=== PATIENT | male | born 1945 | race African-American/Black ===

== ENCOUNTER 2020-08-14 17:10 | Inpatient (IN) | payer MEDICARE, BC ==
[2020-08-14 18:17] VITALS: BMI 25.8
[2020-08-14] MEDS ORDERED: Acetaminophen 325 MG TAB PO PRN (19:02)
[2020-08-14] MEDS ORDERED: Calcium Carbonate 500 MG ChewTAB PO PRN (19:02)
[2020-08-14] MEDS ORDERED: Ondansetron PF 4 MG/2 ML Vial IVP PRN (19:02)
[2020-08-14] MEDS ORDERED: Guaifenesin DM 100-10/5 ML UDCUP PO PRN (19:02)
[2020-08-14] MEDS ORDERED: Bisacodyl 10 MG SUPP PR PRN (19:02)
[2020-08-14] MEDS: Finasteride 5 MG TAB PO SCH (22:09)
[2020-08-15 05:36] LABS: ALT (SGPT) 16 U/L (8-55); AST (SGOT) 21 U/L (5-34); Albumin 2.9 g/dL (3.4-4.8); Alkaline Phosphatase 74 U/L (40-110); Anion Gap 13 mmol/L (10-20); BUN (Urea Nitrogen) 28 mg/dL (8.4-25.7); Bilirubin, Total 0.8 mg/dL (0.2-1.2); Calc. Creatinine Clearance 63 mL/min (70-130); Calcium 7.8 mg/dL (7.8-10.44); Carbon Dioxide 20 mmol/L (23-31); Chloride 108 mmol/L (98-107); Glucose 97 mg/dL (83-110); Potassium 4.6 mmol/L (3.5-5.1); Protein, Total 5.9 g/dL (5.8-8.1); Sodium 136 mmol/L (136-145)
[2020-08-15 05:53] LABS: #Lymphocytes 1.3 thou/uL (1.20-3.40); #Monocytes 1.1 thou/uL (0.11-0.59); #Neutrophils 8.3 thou/uL (1.40-6.50); %Basophils 0.1 % (0.0-1.0); %Eosinophils 0.2 % (0.0-10.0); %Lymphocytes 12.1 % (21.0-51.0); %Monocytes 10.4 % (0.0-10.0); %Neutrophils 77.2 % (42.0-75.0); Hemoglobin 10.7 g/dL (14.0-18.0); Mean Corpuscular HGB CONC 32.7 g/dL (32.0-36.0); Mean Corpuscular Hemoglobin 30.2 pg (27.0-31.0); Mean Corpuscular Volume 92.4 fL (78.0-98.0); Mean Platelet Volume 9.6 fL (7.4-10.4); Platelet Count 117 thou/uL (130-400); Platelet Morphology Comment Appears Decreased; Red Blood Cell (RBC) Count 3.55 mill/uL (4.70-6.10); White Blood Cell (WBC) Count 10.8 thou/uL (4.8-10.8)
[2020-08-15 06:08] LABS: CKMB 1.7 ng/mL (0-6.6)
[2020-08-15] MEDS ORDERED: Furosemide 20 MG/2 ML VIAL SLOW IVP SCH (08:00)
[2020-08-15] MEDS ORDERED: FLU VACC QS2020-21(65YR UP)/PF 240 MCG/0.7 ML SYRINGE IM ONE (09:00)
[2020-08-15] MEDS ORDERED: Simvastatin 10 MG TAB PO SCH (09:00)
[2020-08-15] MEDS ORDERED: Enoxaparin Sodium 40 MG/0.4 ML SYRINGE SC SCH (09:00)
[2020-08-15] MEDS ORDERED: Tamsulosin HCl 0.4 MG CAP ONE (09:33)
[2020-08-15] MEDS: Tamsulosin HCl 0.4 MG CAP PO SCH ×2 (09:44→09:58)
[2020-08-15] MEDS: Clopidogrel Bisulfate 75 MG TAB PO SCH (09:44)
[2020-08-15] MEDS: Aspirin Chewable 81 MG TAB PO SCH (09:45)
[2020-08-15] MEDS: Multivitamin W/ Minerals 1 TAB PO SCH (09:46)
[2020-08-15] MEDS: Enoxaparin Sodium 100 MG/ML SYRINGE SC SCH ×2 (09:49→21:27)
[2020-08-15] MEDS: Furosemide 20 MG/2 ML VIAL SLOW IVP SCH (13:27)
[2020-08-15] MEDS: Senokot S 8.6-50 MG TAB PO PRN (13:34)
[2020-08-15] MEDS: Simvastatin 10 MG TAB PO SCH (21:28)
[2020-08-15] MEDS: Finasteride 5 MG TAB PO SCH (21:28)
[2020-08-16 03:13] LABS: #Lymphocytes 0.7 thou/uL (1.20-3.40); #Monocytes 0.7 thou/uL (0.11-0.59); #Neutrophils 10.6 thou/uL (1.40-6.50); %Basophils 0.3 % (0.0-1.0); %Lymphocytes 5.8 % (21.0-51.0); %Monocytes 5.9 % (0.0-10.0); Hemoglobin 11.5 g/dL (14.0-18.0); Mean Corpuscular HGB CONC 34.1 g/dL (32.0-36.0); Mean Corpuscular Hemoglobin 31.1 pg (27.0-31.0); Mean Corpuscular Volume 91.4 fL (78.0-98.0); Mean Platelet Volume 9.4 fL (7.4-10.4); Platelet Count 113 thou/uL (130-400); RBC Distribution Width 13.1 % (11.5-14.5); Red Blood Cell (RBC) Count 3.69 mill/uL (4.70-6.10)
[2020-08-16 03:31] LABS: ALT (SGPT) 21 U/L (8-55); AST (SGOT) 26 U/L (5-34); Albumin 3.1 g/dL (3.4-4.8); Alkaline Phosphatase 68 U/L (40-110); Anion Gap 13 mmol/L (10-20); BUN (Urea Nitrogen) 32 mg/dL (8.4-25.7); Bilirubin, Total 1.1 mg/dL (0.2-1.2); Calc. Creatinine Clearance 51 mL/min (70-130); Calcium 8.1 mg/dL (7.8-10.44); Carbon Dioxide 24 mmol/L (23-31); Chloride 103 mmol/L (98-107); Globulin 3.3 g/dL (2.4-3.5); Glucose 115 mg/dL (83-110); Magnesium 1.8 mg/dL (1.6-2.6); Potassium 4.2 mmol/L (3.5-5.1); Protein, Total 6.4 g/dL (5.8-8.1); Sodium 136 mmol/L (136-145)
[2020-08-16 03:35] LABS: Troponin I 0.325 ng/mL (< 0.028)
[2020-08-16 03:37] LABS: INR-International Normal Ratio 1.7; PTT 57.1 sec (22.9-36.1); Prothrombin Time 20.3 sec (12.0-14.7)
[2020-08-16] MEDS: Furosemide 20 MG/2 ML VIAL SLOW IVP SCH ×2 (05:36→14:08)
[2020-08-16 08:19] LABS: Bilirubin Negative (Negative); Blood, Urine 2+ (Negative); Clarity Clear (Clear); Glucose, Urine (Dipstick) Normal (Negative); Ketone, Urine Negative (Negative); Leukocyte Negative Leu/uL (Negative); Nitrite Negative (Negative); Protein, Urine (Dipstick) 100 mg/dL (Neg-Trace); RBC/HPF Greater than 50 HPF (0-3); Specific Gravity, Urine 1.034 (1.002-1.036); Squamous Epithelial 0-3 HPF (0-3); WBC/HPF 0-3 HPF (0-3); pH, Urine 5.5 (5.0-9.0)
[2020-08-16 08:20] LABS: Bacteria/HPF 1+ HPF (None Seen)
[2020-08-16] MEDS: Multivitamin W/ Minerals 1 TAB PO SCH (09:16)
[2020-08-16] MEDS ORDERED: Iopamidol 370 76% 50 ML VIAL FS ONE (09:18)
[2020-08-16] MEDS ORDERED: Lidocaine 1% (PF) 30 ML VIAL ONE (09:59)
[2020-08-16] MEDS ORDERED: CEFAZOLIN 1 GM VIAL ONE (10:09)
[2020-08-16] MEDS ORDERED: Gentamicin 80 MG/2 ML VIAL ONE (10:09)
[2020-08-16] MEDS ORDERED: Acetaminophen/Codeine 30-300mg Tablet PO PRN ×2 (11:32)
[2020-08-16] MEDS ORDERED: hydrALAZINE 10 MG TAB PO SCH (13:15)
[2020-08-16] MEDS: Clopidogrel Bisulfate 75 MG TAB PO SCH (14:07)
[2020-08-16] MEDS: Aspirin Chewable 81 MG TAB PO SCH (14:07)
[2020-08-16] MEDS: Cephalexin 250 MG CAP PO SCH ×2 (14:08→21:00)
[2020-08-16] MEDS: Finasteride 5 MG TAB PO SCH (21:00)
[2020-08-16] MEDS: Simvastatin 10 MG TAB PO SCH (21:01)
[2020-08-16] MEDS: Senokot S 8.6-50 MG TAB PO PRN (21:01)
[2020-08-17 05:03] LABS: Anion Gap 13 mmol/L (10-20); BUN (Urea Nitrogen) 27 mg/dL (8.4-25.7); Calc. Creatinine Clearance 77 mL/min (70-130); Calcium 8.2 mg/dL (7.8-10.44); Carbon Dioxide 26 mmol/L (23-31); Chloride 103 mmol/L (98-107); Glucose 83 mg/dL (83-110); Potassium 4.1 mmol/L (3.5-5.1); Sodium 138 mmol/L (136-145)
[2020-08-17] MEDS: Furosemide 20 MG/2 ML VIAL SLOW IVP SCH (05:56)
[2020-08-17] MEDS: Tamsulosin HCl 0.4 MG CAP PO SCH (09:31)
[2020-08-17] MEDS: Aspirin Chewable 81 MG TAB PO SCH (09:31)
[2020-08-17] MEDS: Multivitamin W/ Minerals 1 TAB PO SCH (09:32)
[2020-08-17] MEDS: Cephalexin 250 MG CAP PO SCH (09:32)
[2020-08-17] MEDS: Clopidogrel Bisulfate 75 MG TAB PO SCH (09:32)
[2020-08-17 11:33] VITALS: TEMP 98.4
[2020-08-17 13:47] VITALS: BP 134/64
== END 2020-08-17 12:55 | disposition home or self-care (01) | DRG 243 ==
LOC: 2NO 17:34 → MERGE 17:34
PROVIDERS: ADMIT Internal Medicine; ATTEND Internal Medicine
PROC: 0JH606Z Insertion of Pacemaker, Dual Chamber into Chest Subcutaneous Tissue and Fascia, Open Approach (ICD-10-PCS; principal; 2020-08-16)
PROC: 02HK3JZ Insertion of Pacemaker Lead into Right Ventricle, Percutaneous Approach (ICD-10-PCS; 2020-08-16)
PROC: 02H63JZ Insertion of Pacemaker Lead into Right Atrium, Percutaneous Approach (ICD-10-PCS; 2020-08-16)
DX: I44.1 Atrioventricular block, second degree (principal); N17.9 Acute kidney failure, unspecified; R00.1 Bradycardia, unspecified; I12.9 Hypertensive chronic kidney disease with stage 1 through stage 4 chronic kidney disease, or unspecified chronic kidney disease; R55 Syncope and collapse; N18.2 Chronic kidney disease, stage 2 (mild); Z96.653 Presence of artificial knee joint, bilateral; E78.5 Hyperlipidemia, unspecified; I25.118 Atherosclerotic heart disease of native coronary artery with other forms of angina pectoris; N40.0 Benign prostatic hyperplasia without lower urinary tract symptoms; E86.0 Dehydration; I45.2 Bifascicular block; Z79.02 Long term (current) use of antithrombotics/antiplatelets
CPT/HCPCS: 33249; 36005; 36415; 36416; 70450; 70551; 71045; 75820; 80048; 80053; 81001; 82553; 83735; 83880; 84443; 84484; 85025; 85610; 85730; 90471; 90732; 93005; 93010; 93306; 93798; 97139; C1785; C1898; G0009; J0690; J1580; J1650; J1940; J2001; Q9967

== ENCOUNTER 2020-09-05 11:33 | Inpatient (IN) | payer MEDICARE, BC ==
[2020-09-05 18:15] LABS: Troponin I 0.138 ng/mL (< 0.028)
[2020-09-05 20:39] LABS: SARS-CoV-2 PCR by NAA Not Detected (NotDetected)
[2020-09-05] MEDS: Finasteride 5 MG TAB PO SCH (20:51)
[2020-09-05] MEDS: Simvastatin 10 MG TAB PO SCH (20:52)
[2020-09-05] MEDS: Acetaminophen 325 MG TAB PO PRN (20:52)
[2020-09-05 21:25] LABS: Troponin I 0.121 ng/mL (< 0.028)
[2020-09-06 06:17] LABS: #Eosinphils 0.3 thou/uL (0.0-0.7); #Lymphocytes 1.8 thou/uL (1.20-3.40); #Monocytes 0.9 thou/uL (0.11-0.59); #Neutrophils 7.3 thou/uL (1.40-6.50); %Basophils 0.3 % (0.0-1.0); %Eosinophils 2.9 % (0.0-10.0); %Lymphocytes 17.1 % (21.0-51.0); %Monocytes 8.8 % (0.0-10.0); %Neutrophils 70.9 % (42.0-75.0); Hemoglobin 12.3 g/dL (14.0-18.0); Mean Corpuscular Hemoglobin 30.5 pg (27.0-31.0); Mean Corpuscular Volume 92.4 fL (78.0-98.0); Mean Platelet Volume 8.2 fL (7.4-10.4); Platelet Count 180 thou/uL (130-400); RBC Distribution Width 12.9 % (11.5-14.5); Red Blood Cell (RBC) Count 4.05 mill/uL (4.70-6.10); White Blood Cell (WBC) Count 10.3 thou/uL (4.8-10.8)
[2020-09-06 06:40] LABS: Anion Gap 14 mmol/L (10-20); BUN (Urea Nitrogen) 18 mg/dL (8.4-25.7); Calc. Creatinine Clearance 78 mL/min (70-130); Carbon Dioxide 25 mmol/L (23-31); Chloride 103 mmol/L (98-107); Glucose 94 mg/dL (83-110); Potassium 4.8 mmol/L (3.5-5.1); Sodium 137 mmol/L (136-145)
[2020-09-06] MEDS ORDERED: Amlodipine 5 MG TAB PO SCH (09:00)
[2020-09-06] MEDS: Tamsulosin HCl 0.4 MG CAP PO SCH (09:31)
[2020-09-06] MEDS: Multivitamin W/ Minerals 1 TAB PO SCH (09:31)
[2020-09-06] MEDS: Clopidogrel Bisulfate 75 MG TAB PO SCH (09:32)
[2020-09-06] MEDS: Sodium Chloride 0.9% 1,000 ML IV SCH (10:51)
[2020-09-06] MEDS: Cefepime 1 GM in Sodium Chloride 0.9% 100 ML IVPB SCH (14:35)
[2020-09-06] MEDS: VANCOMYCIN 1.25 GM/250 ML BAG 1.25 GM in Premix Bag 1 BAG IVPB SCH (15:19)
[2020-09-06] MEDS ORDERED: Vancomycin 1 GM in Premix Bag 1 BAG IVPB SCH (21:00)
[2020-09-06] MEDS: Finasteride 5 MG TAB PO SCH (21:23)
[2020-09-06] MEDS: Simvastatin 10 MG TAB PO SCH (21:24)
[2020-09-07] MEDS: Sodium Chloride 0.9% 1,000 ML IV SCH ×4 (01:14→14:32)
[2020-09-07] MEDS: Cefepime 1 GM in Sodium Chloride 0.9% 100 ML IVPB SCH ×2 (01:29→14:33)
[2020-09-07] MEDS: VANCOMYCIN 1.25 GM/250 ML BAG 1.25 GM in Premix Bag 1 BAG IVPB SCH ×2 (02:23→15:28)
[2020-09-07 06:15] LABS: #Basophils 0.1 thou/uL (0.0-0.2); #Eosinphils 0.3 thou/uL (0.0-0.7); #Lymphocytes 1.5 thou/uL (1.20-3.40); #Monocytes 1.1 thou/uL (0.11-0.59); #Neutrophils 6.9 thou/uL (1.40-6.50); %Basophils 0.8 % (0.0-1.0); %Eosinophils 3.2 % (0.0-10.0); %Lymphocytes 14.9 % (21.0-51.0); %Monocytes 11.3 % (0.0-10.0); %Neutrophils 69.8 % (42.0-75.0); Hemoglobin 11.1 g/dL (14.0-18.0); Mean Corpuscular HGB CONC 31.4 g/dL (32.0-36.0); Mean Corpuscular Volume 92.4 fL (78.0-98.0); Mean Platelet Volume 8.4 fL (7.4-10.4); Platelet Count 164 thou/uL (130-400); RBC Distribution Width 12.9 % (11.5-14.5); Red Blood Cell (RBC) Count 3.83 mill/uL (4.70-6.10); White Blood Cell (WBC) Count 9.9 thou/uL (4.8-10.8)
[2020-09-07 06:34] LABS: Anion Gap 12 mmol/L (10-20); BUN (Urea Nitrogen) 15 mg/dL (8.4-25.7); Calc. Creatinine Clearance 89 mL/min (70-130); Calcium 8.4 mg/dL (7.8-10.44); Carbon Dioxide 25 mmol/L (23-31); Chloride 106 mmol/L (98-107); Glucose 83 mg/dL (83-110); Sodium 139 mmol/L (136-145)
[2020-09-07] MEDS: Multivitamin W/ Minerals 1 TAB PO SCH (09:16)
[2020-09-07] MEDS: Clopidogrel Bisulfate 75 MG TAB PO SCH (09:17)
[2020-09-07] MEDS: Tamsulosin HCl 0.4 MG CAP PO SCH (09:17)
[2020-09-07] MEDS: Finasteride 5 MG TAB PO SCH (22:00)
[2020-09-07] MEDS: Simvastatin 10 MG TAB PO SCH (22:05)
[2020-09-08] MEDS: Cefepime 1 GM in Sodium Chloride 0.9% 100 ML IVPB SCH ×2 (00:57→15:39)
[2020-09-08] MEDS: Sodium Chloride 0.9% 1,000 ML IV SCH ×3 (00:58→21:52)
[2020-09-08] MEDS: VANCOMYCIN 1.25 GM/250 ML BAG 1.25 GM in Premix Bag 1 BAG IVPB SCH ×2 (02:48→15:40)
[2020-09-08 05:51] LABS: Vancomycin, Trough 13.7 ug/mL
[2020-09-08] MEDS: Tamsulosin HCl 0.4 MG CAP PO SCH (07:51)
[2020-09-08] MEDS: Clopidogrel Bisulfate 75 MG TAB PO SCH (07:51)
[2020-09-08] MEDS: Multivitamin W/ Minerals 1 TAB PO SCH (07:51)
[2020-09-08] MEDS: Simvastatin 10 MG TAB PO SCH (21:18)
[2020-09-08] MEDS: Finasteride 5 MG TAB PO SCH (21:18)
[2020-09-09] MEDS: Cefepime 1 GM in Sodium Chloride 0.9% 100 ML IVPB SCH ×2 (01:29→15:36)
[2020-09-09] MEDS: Vancomycin HCl 1.25 GM in Sodium Chloride 0.9% 250 ML 250 ML IVPB SCH ×2 (02:20→15:36)
[2020-09-09] MEDS: Sodium Chloride 0.9% 1,000 ML IV SCH ×2 (05:23→17:35)
[2020-09-09 06:09] LABS: #Basophils 0.1 thou/uL (0.0-0.2); #Eosinphils 0.3 thou/uL (0.0-0.7); #Lymphocytes 1.9 thou/uL (1.20-3.40); #Neutrophils 6.4 thou/uL (1.40-6.50); %Basophils 0.7 % (0.0-1.0); %Lymphocytes 19.2 % (21.0-51.0); %Monocytes 10.3 % (0.0-10.0); %Neutrophils 66.8 % (42.0-75.0); Mean Corpuscular HGB CONC 33.2 g/dL (32.0-36.0); Mean Corpuscular Hemoglobin 30.2 pg (27.0-31.0); Mean Corpuscular Volume 90.8 fL (78.0-98.0); Mean Platelet Volume 8.1 fL (7.4-10.4); Platelet Count 155 thou/uL (130-400); RBC Distribution Width 12.6 % (11.5-14.5); Red Blood Cell (RBC) Count 3.65 mill/uL (4.70-6.10); White Blood Cell (WBC) Count 9.6 thou/uL (4.8-10.8)
[2020-09-09 06:33] LABS: Anion Gap 13 mmol/L (10-20); BUN (Urea Nitrogen) 10 mg/dL (8.4-25.7); Calc. Creatinine Clearance 96 mL/min (70-130); Calcium 8.4 mg/dL (7.8-10.44); Carbon Dioxide 24 mmol/L (23-31); Chloride 106 mmol/L (98-107); Glucose 81 mg/dL (83-110); Potassium 3.9 mmol/L (3.5-5.1); Sodium 139 mmol/L (136-145)
[2020-09-09] MEDS: Multivitamin W/ Minerals 1 TAB PO SCH (08:32)
[2020-09-09] MEDS: Clopidogrel Bisulfate 75 MG TAB PO SCH (08:32)
[2020-09-09] MEDS: Tamsulosin HCl 0.4 MG CAP PO SCH (08:32)
[2020-09-09] MEDS ORDERED: Amlodipine 10 MG TAB PO SCH (11:45)
[2020-09-09 13:59] LABS: Vancomycin, Trough 15.8 ug/mL
[2020-09-09] MEDS ORDERED: ALPRAZolam 0.25 MG TAB PO SCH (16:45)
[2020-09-09] MEDS: hydrALAZINE 20 MG/ML VIAL SLOW IVP PRN (17:21)
[2020-09-09] MEDS: Finasteride 5 MG TAB PO SCH (20:56)
[2020-09-09] MEDS: Simvastatin 10 MG TAB PO SCH (21:00)
[2020-09-10] MEDS: Cefepime 1 GM in Sodium Chloride 0.9% 100 ML IVPB SCH ×2 (02:11→16:39)
[2020-09-10] MEDS: Vancomycin HCl 1.25 GM in Sodium Chloride 0.9% 250 ML 250 ML IVPB SCH ×2 (04:01→16:39)
[2020-09-10] MEDS: Sodium Chloride 0.9% 1,000 ML IV SCH ×2 (04:02→15:56)
[2020-09-10 04:38] LABS: #Basophils 0.1 thou/uL (0.0-0.2); #Eosinphils 0.2 thou/uL (0.0-0.7); #Lymphocytes 1.7 thou/uL (1.20-3.40); #Neutrophils 6.3 thou/uL (1.40-6.50); %Basophils 0.7 % (0.0-1.0); %Eosinophils 2.4 % (0.0-10.0); %Monocytes 10.7 % (0.0-10.0); %Neutrophils 68.2 % (42.0-75.0); Mean Corpuscular HGB CONC 31.7 g/dL (32.0-36.0); Mean Corpuscular Hemoglobin 28.8 pg (27.0-31.0); Mean Corpuscular Volume 90.9 fL (78.0-98.0); Mean Platelet Volume 7.9 fL (7.4-10.4); Platelet Count 161 thou/uL (130-400); RBC Distribution Width 12.8 % (11.5-14.5); Red Blood Cell (RBC) Count 3.82 mill/uL (4.70-6.10); White Blood Cell (WBC) Count 9.2 thou/uL (4.8-10.8)
[2020-09-10 05:34] LABS: Anion Gap 9 mmol/L (10-20); BUN (Urea Nitrogen) 8 mg/dL (8.4-25.7); Calc. Creatinine Clearance 98 mL/min (70-130); Calcium 8.4 mg/dL (7.8-10.44); Carbon Dioxide 26 mmol/L (23-31); Chloride 106 mmol/L (98-107); Glucose 93 mg/dL (83-110); Potassium 3.7 mmol/L (3.5-5.1); Sodium 137 mmol/L (136-145)
[2020-09-10] MEDS: Amlodipine 10 MG TAB PO SCH (08:17)
[2020-09-10] MEDS: Multivitamin W/ Minerals 1 TAB PO SCH (08:17)
[2020-09-10] MEDS: Tamsulosin HCl 0.4 MG CAP PO SCH (08:18)
[2020-09-10] MEDS ORDERED: Gentamicin 80 MG/2 ML VIAL ONE (13:06)
[2020-09-10] MEDS ORDERED: CEFAZOLIN 1 GM VIAL ONE (13:06)
[2020-09-10] MEDS ORDERED: Propofol 1,000 MG/100 ML VIAL IV ONE (13:09)
[2020-09-10] MEDS ORDERED: ePHEDrine Sulfate 50 MG/10 ML VIAL ONE (13:26)
[2020-09-10] MEDS ORDERED: Lidocaine 1% PF 5 ML VIAL ONE (13:26)
[2020-09-10] MEDS ORDERED: PHENYLEPHRINE-NS 100 MCG/ML 10 ML SYRINGE ONE ×2 (13:26→14:10)
[2020-09-10] MEDS: Cefepime 2 GM in Sodium Chloride 0.9% 100 ML IVPB SCH ×2 (15:55→21:53)
[2020-09-10] MEDS: Clopidogrel Bisulfate 75 MG TAB PO SCH (16:36)
[2020-09-10] MEDS: VANCOMYCIN 1.25 GM/250 ML BAG 1.25 GM in Premix Bag 1 BAG IVPB SCH (16:41)
[2020-09-10] MEDS: Finasteride 5 MG TAB PO SCH (20:33)
[2020-09-10] MEDS: Simvastatin 10 MG TAB PO SCH (20:33)
[2020-09-11] MEDS: VANCOMYCIN 1.25 GM/250 ML BAG 1.25 GM in Premix Bag 1 BAG IVPB SCH ×2 (03:17→15:22)
[2020-09-11 05:10] LABS: #Basophils 0.1 thou/uL (0.0-0.2); #Eosinphils 0.3 thou/uL (0.0-0.7); #Lymphocytes 1.9 thou/uL (1.20-3.40); #Neutrophils 6.4 thou/uL (1.40-6.50); %Basophils 0.5 % (0.0-1.0); %Eosinophils 3.2 % (0.0-10.0); %Lymphocytes 19.2 % (21.0-51.0); %Monocytes 10.4 % (0.0-10.0); %Neutrophils 66.7 % (42.0-75.0); Hemoglobin 11.5 g/dL (14.0-18.0); Mean Corpuscular HGB CONC 31.7 g/dL (32.0-36.0); Mean Corpuscular Hemoglobin 29.1 pg (27.0-31.0); Mean Corpuscular Volume 91.9 fL (78.0-98.0); Mean Platelet Volume 8.2 fL (7.4-10.4); Platelet Count 158 thou/uL (130-400); Red Blood Cell (RBC) Count 3.96 mill/uL (4.70-6.10); White Blood Cell (WBC) Count 9.6 thou/uL (4.8-10.8)
[2020-09-11 05:23] LABS: Anion Gap 11 mmol/L (10-20); BUN (Urea Nitrogen) 8 mg/dL (8.4-25.7); Calc. Creatinine Clearance 97 mL/min (70-130); Calcium 8.4 mg/dL (7.8-10.44); Carbon Dioxide 25 mmol/L (23-31); Chloride 108 mmol/L (98-107); Glucose 101 mg/dL (83-110); Potassium 3.8 mmol/L (3.5-5.1); Sodium 140 mmol/L (136-145)
[2020-09-11] MEDS: Sodium Chloride 0.9% 1,000 ML IV SCH (06:16)
[2020-09-11] MEDS: Cefepime 2 GM in Sodium Chloride 0.9% 100 ML IVPB SCH ×3 (06:16→21:47)
[2020-09-11] MEDS: Tamsulosin HCl 0.4 MG CAP PO SCH (09:30)
[2020-09-11] MEDS: Clopidogrel Bisulfate 75 MG TAB PO SCH (09:31)
[2020-09-11] MEDS: Multivitamin W/ Minerals 1 TAB PO SCH (09:31)
[2020-09-11] MEDS: Amlodipine 10 MG TAB PO SCH (09:31)
[2020-09-11 14:08] LABS: Vancomycin, Trough 17.6 ug/mL
[2020-09-11] MEDS: 1/2 NS w/KCL 20 mEq 1,000 ML IV SCH (16:59)
[2020-09-11] MEDS: Simvastatin 10 MG TAB PO SCH (20:47)
[2020-09-11] MEDS: Finasteride 5 MG TAB PO SCH (20:47)
[2020-09-12] MEDS: VANCOMYCIN 1.25 GM/250 ML BAG 1.25 GM in Premix Bag 1 BAG IVPB SCH ×2 (02:59→15:05)
[2020-09-12 04:51] LABS: #Basophils 0.1 thou/uL (0.0-0.2); #Eosinphils 0.3 thou/uL (0.0-0.7); #Monocytes 0.9 thou/uL (0.11-0.59); #Neutrophils 6.3 thou/uL (1.40-6.50); %Basophils 0.8 % (0.0-1.0); %Eosinophils 3.2 % (0.0-10.0); %Lymphocytes 20.7 % (21.0-51.0); %Monocytes 9.7 % (0.0-10.0); %Neutrophils 65.6 % (42.0-75.0); Hemoglobin 11.2 g/dL (14.0-18.0); Mean Corpuscular HGB CONC 31.8 g/dL (32.0-36.0); Mean Corpuscular Hemoglobin 29.2 pg (27.0-31.0); Mean Corpuscular Volume 91.7 fL (78.0-98.0); Mean Platelet Volume 8.6 fL (7.4-10.4); Platelet Count 157 thou/uL (130-400); RBC Distribution Width 12.8 % (11.5-14.5); Red Blood Cell (RBC) Count 3.84 mill/uL (4.70-6.10); White Blood Cell (WBC) Count 9.5 thou/uL (4.8-10.8)
[2020-09-12 05:11] LABS: Anion Gap 12 mmol/L (10-20); BUN (Urea Nitrogen) 9 mg/dL (8.4-25.7); Calc. Creatinine Clearance 97 mL/min (70-130); Calcium 8.8 mg/dL (7.8-10.44); Carbon Dioxide 24 mmol/L (23-31); Chloride 106 mmol/L (98-107); Glucose 92 mg/dL (83-110); Potassium 3.6 mmol/L (3.5-5.1); Sodium 138 mmol/L (136-145)
[2020-09-12] MEDS: Cefepime 2 GM in Sodium Chloride 0.9% 100 ML IVPB SCH ×3 (05:27→21:42)
[2020-09-12] MEDS: hydrALAZINE 20 MG/ML VIAL SLOW IVP PRN (05:30)
[2020-09-12] MEDS: Aspirin 81 mg Enteric Coated Tablet PO SCH (08:59)
[2020-09-12] MEDS: Tamsulosin HCl 0.4 MG CAP PO SCH (09:00)
[2020-09-12] MEDS: Multivitamin W/ Minerals 1 TAB PO SCH (09:00)
[2020-09-12] MEDS: Clopidogrel Bisulfate 75 MG TAB PO SCH (09:00)
[2020-09-12] MEDS ORDERED: Amlodipine 5 MG TAB PO SCH (11:30)
[2020-09-12] MEDS ORDERED: Polyethylene Glycol 3350 17 GM Packet PO SCH (11:30)
[2020-09-12] MEDS: 1/2 NS w/KCL 20 mEq 1,000 ML IV SCH (12:27)
[2020-09-12] MEDS: Simvastatin 10 MG TAB PO SCH (21:36)
[2020-09-12] MEDS: Finasteride 5 MG TAB PO SCH (21:36)
[2020-09-12] MEDS: Senokot S 8.6-50 MG TAB PO SCH (21:37)
[2020-09-13] MEDS: VANCOMYCIN 1.25 GM/250 ML BAG 1.25 GM in Premix Bag 1 BAG IVPB SCH ×2 (02:46→16:16)
[2020-09-13] MEDS: Cefepime 2 GM in Sodium Chloride 0.9% 100 ML IVPB SCH ×3 (05:48→20:50)
[2020-09-13] MEDS: Amlodipine 5 MG TAB PO SCH (10:21)
[2020-09-13] MEDS: Aspirin 81 mg Enteric Coated Tablet PO SCH (10:21)
[2020-09-13] MEDS: Saccharomyces boulardii 250 MG CAP PO SCH (10:23)
[2020-09-13] MEDS: Tamsulosin HCl 0.4 MG CAP PO SCH (10:23)
[2020-09-13] MEDS: Multivitamin W/ Minerals 1 TAB PO SCH (10:23)
[2020-09-13] MEDS: Senokot S 8.6-50 MG TAB PO SCH ×2 (10:23→20:49)
[2020-09-13] MEDS: Clopidogrel Bisulfate 75 MG TAB PO SCH (10:23)
[2020-09-13] MEDS: Polyethylene Glycol 3350 17 GM Packet PO SCH (10:24)
[2020-09-13] MEDS: hydrALAZINE 20 MG/ML VIAL SLOW IVP PRN ×2 (11:42→16:17)
[2020-09-13] MEDS: Finasteride 5 MG TAB PO SCH (20:49)
[2020-09-13] MEDS: Simvastatin 10 MG TAB PO SCH (20:50)
[2020-09-14] MEDS: VANCOMYCIN 1.25 GM/250 ML BAG 1.25 GM in Premix Bag 1 BAG IVPB SCH ×2 (02:03→14:13)
[2020-09-14] MEDS: Cefepime 2 GM in Sodium Chloride 0.9% 100 ML IVPB SCH ×3 (05:25→21:04)
[2020-09-14] MEDS ORDERED: Lidocaine 1% (PF) 30 ML VIAL ONE (06:50)
[2020-09-14] MEDS ORDERED: Fentanyl 100 MCG/2 ML VIAL ONE (07:02)
[2020-09-14] MEDS ORDERED: Lidocaine 1% PF 5 ML VIAL ONE (07:47)
[2020-09-14] MEDS ORDERED: PHENYLEPHRINE-NS 100 MCG/ML 10 ML SYRINGE ONE (07:47)
[2020-09-14] MEDS: Tamsulosin HCl 0.4 MG CAP PO SCH (09:43)
[2020-09-14] MEDS: Saccharomyces boulardii 250 MG CAP PO SCH (09:43)
[2020-09-14] MEDS: Aspirin 81 mg Enteric Coated Tablet PO SCH (09:43)
[2020-09-14] MEDS: Amlodipine 5 MG TAB PO SCH (09:43)
[2020-09-14] MEDS: Polyethylene Glycol 3350 17 GM Packet PO SCH (09:43)
[2020-09-14] MEDS: Multivitamin W/ Minerals 1 TAB PO SCH (09:43)
[2020-09-14] MEDS: Clopidogrel Bisulfate 75 MG TAB PO SCH (09:43)
[2020-09-14] MEDS: Senokot S 8.6-50 MG TAB PO SCH ×2 (09:43→21:05)
[2020-09-14] MEDS ORDERED: Acetaminophen/Codeine 30-300mg Tablet PO PRN ×2 (10:15)
[2020-09-14] MEDS ORDERED: Iopamidol 370 76% 100 ML VIAL ONE (10:38)
[2020-09-14] MEDS: Acetaminophen 325 MG TAB PO PRN (14:13)
[2020-09-14 15:08] LABS: Vancomycin, Trough 18.5 ug/mL
[2020-09-14] MEDS ORDERED: Sodium Chloride 0.9% 500 ML IVPB PRN (17:47)
[2020-09-14] MEDS: Finasteride 5 MG TAB PO SCH (21:05)
[2020-09-14] MEDS: Simvastatin 10 MG TAB PO SCH (21:05)
[2020-09-15] MEDS: VANCOMYCIN 1.25 GM/250 ML BAG 1.25 GM in Premix Bag 1 BAG IVPB SCH ×2 (01:50→15:44)
[2020-09-15] MEDS: Cefepime 2 GM in Sodium Chloride 0.9% 100 ML IVPB SCH ×2 (05:59→15:44)
[2020-09-15] MEDS: Tamsulosin HCl 0.4 MG CAP PO SCH (09:59)
[2020-09-15] MEDS: Senokot S 8.6-50 MG TAB PO SCH ×2 (09:59→21:48)
[2020-09-15] MEDS: Aspirin 81 mg Enteric Coated Tablet PO SCH (09:59)
[2020-09-15] MEDS: Multivitamin W/ Minerals 1 TAB PO SCH (10:00)
[2020-09-15] MEDS: Clopidogrel Bisulfate 75 MG TAB PO SCH (10:00)
[2020-09-15] MEDS: Amlodipine 5 MG TAB PO SCH (10:00)
[2020-09-15] MEDS: Polyethylene Glycol 3350 17 GM Packet PO SCH (10:02)
[2020-09-15] MEDS: Saccharomyces boulardii 250 MG CAP PO SCH (10:02)
[2020-09-15 13:47] LABS: Vancomycin, Trough 20.5 ug/mL
[2020-09-15] MEDS: Vancomycin 1 GM in Premix Bag 1 BAG IVPB SCH (15:44)
[2020-09-15] MEDS: Finasteride 5 MG TAB PO SCH (21:48)
[2020-09-15] MEDS: Simvastatin 10 MG TAB PO SCH (21:49)
[2020-09-16] MEDS: Vancomycin 1 GM in Premix Bag 1 BAG IVPB SCH ×2 (03:01→16:43)
[2020-09-16] MEDS: Amlodipine 5 MG TAB PO SCH (08:53)
[2020-09-16] MEDS: Senokot S 8.6-50 MG TAB PO SCH (08:53)
[2020-09-16] MEDS: Tamsulosin HCl 0.4 MG CAP PO SCH (08:53)
[2020-09-16] MEDS: Polyethylene Glycol 3350 17 GM Packet PO SCH (08:53)
[2020-09-16] MEDS: Saccharomyces boulardii 250 MG CAP PO SCH (08:53)
[2020-09-16] MEDS: Aspirin 81 mg Enteric Coated Tablet PO SCH (08:53)
[2020-09-16] MEDS: Clopidogrel Bisulfate 75 MG TAB PO SCH (08:53)
[2020-09-16] MEDS: Multivitamin W/ Minerals 1 TAB PO SCH (08:53)
[2020-09-16 10:54] VITALS: BMI 25.9
[2020-09-16 16:32] VITALS: BP 130/60; TEMP 98
== END 2020-09-16 19:15 | disposition home health service (06) | DRG 229 ==
LOC: 2SW 11:33 → OBSVTOIN 09-07 08:57 → MERGE 09-07 08:57 → 2NO 09-07 21:41
PROVIDERS: ADMIT Internal Medicine; ATTEND Hospitalist
PROC: 02HK3NZ Insertion of Intracardiac Pacemaker into Right Ventricle, Percutaneous Approach (ICD-10-PCS; principal; 2020-09-07)
PROC: 02PA3MZ Removal of Cardiac Lead from Heart, Percutaneous Approach (ICD-10-PCS; 2020-09-07)
DX: T82.7XXA Infection and inflammatory reaction due to other cardiac and vascular devices, implants and grafts, initial encounter (principal); Y83.8 Other surgical procedures as the cause of abnormal reaction of the patient, or of later complication, without mention of misadventure at the time of the procedure; Z95.0 Presence of cardiac pacemaker; I12.9 Hypertensive chronic kidney disease with stage 1 through stage 4 chronic kidney disease, or unspecified chronic kidney disease; E78.5 Hyperlipidemia, unspecified; Z96.659 Presence of unspecified artificial knee joint; N40.0 Benign prostatic hyperplasia without lower urinary tract symptoms; Z80.0 Family history of malignant neoplasm of digestive organs; Z82.49 Family history of ischemic heart disease and other diseases of the circulatory system; I95.9 Hypotension, unspecified; B96.5 Pseudomonas (aeruginosa) (mallei) (pseudomallei) as the cause of diseases classified elsewhere; I73.9 Peripheral vascular disease, unspecified; D64.9 Anemia, unspecified; I25.118 Atherosclerotic heart disease of native coronary artery with other forms of angina pectoris; K59.00 Constipation, unspecified; N18.30 Chronic kidney disease, stage 3 unspecified
CPT/HCPCS: 33207; 33210; 33234; 33235; 36415; 36416; 71045; 71260; 74177; 76942; 80048; 80202; 84484; 85025; 87040; 87070; 87077; 87186; 87205; 87635; 93005; 93010; 94760; 96374; 96375; 96376; C1898; G0378; J0360; J0690; J0692; J1580; J2001; J2704; J3010; J3370; J3480; J3490; J7050; Q9967; U0003; U0005

== ENCOUNTER 2020-09-16 22:02 | Inpatient (IN) | payer MEDICARE, BC ==
[2020-09-16 22:47] LABS: #Basophils 0.1 thou/uL (0.0-0.2); #Eosinphils 0.2 thou/uL (0.0-0.7); #Lymphocytes 1.4 thou/uL (1.20-3.40); #Monocytes 0.9 thou/uL (0.11-0.59); #Neutrophils 8.7 thou/uL (1.40-6.50); %Basophils 0.6 % (0.0-1.0); %Eosinophils 1.7 % (0.0-10.0); %Lymphocytes 12.1 % (21.0-51.0); %Monocytes 7.7 % (0.0-10.0); %Neutrophils 77.9 % (42.0-75.0); Hemoglobin 11.9 g/dL (14.0-18.0); Mean Corpuscular HGB CONC 32.5 g/dL (32.0-36.0); Mean Corpuscular Hemoglobin 29.7 pg (27.0-31.0); Mean Corpuscular Volume 91.3 fL (78.0-98.0); Mean Platelet Volume 8.2 fL (7.4-10.4); Platelet Count 184 thou/uL (130-400); Red Blood Cell (RBC) Count 4.02 mill/uL (4.70-6.10); White Blood Cell (WBC) Count 11.2 thou/uL (4.8-10.8)
[2020-09-16 23:09] LABS: ALT (SGPT) 22 U/L (8-55); AST (SGOT) 30 U/L (5-34); Albumin 3.4 g/dL (3.4-4.8); Alkaline Phosphatase 103 U/L (40-110); Anion Gap 14 mmol/L (10-20); BUN (Urea Nitrogen) 13 mg/dL (8.4-25.7); Bilirubin, Total 0.5 mg/dL (0.2-1.2); Calc. Creatinine Clearance 0 mL/min (70-130); Carbon Dioxide 25 mmol/L (23-31); Chloride 103 mmol/L (98-107); Globulin 3.9 g/dL (2.4-3.5); Glucose 91 mg/dL (83-110); Protein, Total 7.3 g/dL (5.8-8.1); Sodium 138 mmol/L (136-145)
[2020-09-16 23:28] LABS: CKMB 1.3 ng/mL (0-6.6)
[2020-09-17] MEDS ORDERED: Ondansetron ODT 4 MG TAB PO PRN (01:51)
[2020-09-17] MEDS ORDERED: Ondansetron PF 4 MG/2 ML Vial IVP PRN (01:51)
[2020-09-17] MEDS ORDERED: Acetaminophen 325 MG TAB PO PRN (01:51)
[2020-09-17] MEDS ORDERED: Cefepime 2 GM in Sodium Chloride 0.9% 100 ML IVPB SCH (03:00)
[2020-09-17] MEDS ORDERED: Piperacillin/Tazobactam 4.5 GM in Sodium Chloride 0.9% 100 ML IVPB SCH (03:00)
[2020-09-17 04:37] LABS: #Basophils 0.1 thou/uL (0.0-0.2); #Eosinphils 0.1 thou/uL (0.0-0.7); #Monocytes 0.8 thou/uL (0.11-0.59); #Neutrophils 7.6 thou/uL (1.40-6.50); %Basophils 0.7 % (0.0-1.0); %Eosinophils 1.1 % (0.0-10.0); %Lymphocytes 18.9 % (21.0-51.0); %Monocytes 7.9 % (0.0-10.0); %Neutrophils 71.5 % (42.0-75.0); Hemoglobin 11.2 g/dL (14.0-18.0); Mean Corpuscular Hemoglobin 29.2 pg (27.0-31.0); Mean Corpuscular Volume 91.2 fL (78.0-98.0); Mean Platelet Volume 8.1 fL (7.4-10.4); Platelet Count 192 thou/uL (130-400); RBC Distribution Width 12.9 % (11.5-14.5); Red Blood Cell (RBC) Count 3.83 mill/uL (4.70-6.10); White Blood Cell (WBC) Count 10.6 thou/uL (4.8-10.8)
[2020-09-17 04:57] LABS: Anion Gap 14 mmol/L (10-20); BUN (Urea Nitrogen) 13 mg/dL (8.4-25.7); Calc. Creatinine Clearance 79 mL/min (70-130); Calcium 8.9 mg/dL (7.8-10.44); Carbon Dioxide 26 mmol/L (23-31); Chloride 102 mmol/L (98-107); Glucose 92 mg/dL (83-110); Potassium 3.7 mmol/L (3.5-5.1); Sodium 138 mmol/L (136-145)
[2020-09-17 05:34] LABS: SARS-CoV-2 NAA Rapid Test Not Detected (NotDetected)
[2020-09-17] MEDS: Enoxaparin Sodium 40 MG/0.4 ML SYRINGE SC SCH (08:06)
[2020-09-17] MEDS ORDERED: Pravastatin Sodium 20 MG TAB PO SCH (21:00)
[2020-09-17] MEDS ORDERED: Non-Formulary Item 1 EACH (Ranolazine [Ranolazine Er] 1,000 MG Tab.Er.12h) PO SCH (21:00)
[2020-09-17] MEDS: Finasteride 5 MG TAB PO SCH (21:54)
[2020-09-17] MEDS: Simvastatin 10 MG TAB PO SCH (21:55)
[2020-09-18] MEDS ORDERED: Labetalol HCl 100 MG/20 ML VIAL SLOW IVP PRN (05:15)
[2020-09-18] MEDS: hydrALAZINE 20 MG/ML VIAL SLOW IVP PRN (05:58)
[2020-09-18] MEDS: Enoxaparin Sodium 40 MG/0.4 ML SYRINGE SC SCH (08:58)
[2020-09-18] MEDS: Saccharomyces boulardii 250 MG CAP PO SCH (08:59)
[2020-09-18] MEDS: Aspirin 325 MG TAB PO SCH (08:59)
[2020-09-18] MEDS: Tamsulosin HCl 0.4 MG CAP PO SCH (08:59)
[2020-09-18] MEDS: Clopidogrel Bisulfate 75 MG TAB PO SCH (09:00)
[2020-09-18] MEDS ORDERED: Amlodipine 5 MG TAB PO SCH ×2 (09:00→21:00)
[2020-09-18 13:45] LABS: Free T4 (Free Thyroxine) 1.17 ng/dL (0.70-1.48); Thyroid Stimulating Hormone 0.8559 uIU/mL (0.35-4.94)
[2020-09-18] MEDS: Simvastatin 10 MG TAB PO SCH (20:58)
[2020-09-18] MEDS: Finasteride 5 MG TAB PO SCH (20:58)
[2020-09-19] MEDS ORDERED: Sodium Chloride 0.9% 1,000 ML IV SCH (08:00)
[2020-09-19] MEDS: Saccharomyces boulardii 250 MG CAP PO SCH (08:41)
[2020-09-19] MEDS: Clopidogrel Bisulfate 75 MG TAB PO SCH (08:41)
[2020-09-19] MEDS: Enoxaparin Sodium 40 MG/0.4 ML SYRINGE SC SCH (08:41)
[2020-09-19] MEDS: Tamsulosin HCl 0.4 MG CAP PO SCH (08:41)
[2020-09-19] MEDS: Aspirin 325 MG TAB PO SCH (08:41)
[2020-09-19] MEDS ORDERED: Midodrine HCl 5 MG TAB PO SCH (15:30)
[2020-09-19] MEDS: Finasteride 5 MG TAB PO SCH (20:46)
[2020-09-19] MEDS: Midodrine HCl 5 MG TAB PO SCH (20:46)
[2020-09-19] MEDS: Simvastatin 10 MG TAB PO SCH (20:47)
[2020-09-20 04:35] LABS: Hemoglobin A1c 4.7 % (4.0-6.0)
[2020-09-20] MEDS: Enoxaparin Sodium 40 MG/0.4 ML SYRINGE SC SCH (09:01)
[2020-09-20] MEDS: Clopidogrel Bisulfate 75 MG TAB PO SCH (09:01)
[2020-09-20] MEDS: Aspirin 325 MG TAB PO SCH (09:01)
[2020-09-20] MEDS: Midodrine HCl 5 MG TAB PO SCH ×3 (09:02→20:38)
[2020-09-20] MEDS: Pyridostigmine Bromide IR 60 MG TAB PO SCH ×3 (09:03→20:39)
[2020-09-20] MEDS: Tamsulosin HCl 0.4 MG CAP PO SCH (09:04)
[2020-09-20] MEDS: Saccharomyces boulardii 250 MG CAP PO SCH (09:04)
[2020-09-20] MEDS ORDERED: Cosyntropin 250 MCG VIAL SLOW IVP SCH (09:15)
[2020-09-20 10:17] LABS: Hemoglobin A1c 4.7 % (4.0-6.0)
[2020-09-20] MEDS: Finasteride 5 MG TAB PO SCH (20:38)
[2020-09-20] MEDS: Simvastatin 10 MG TAB PO SCH (20:40)
[2020-09-21] MEDS ORDERED: Fludrocortisone Acetate 0.1 MG TAB PO SCH (09:15)
[2020-09-21] MEDS ORDERED: Pyridostigmine Bromide IR 60 MG TAB PO SCH (09:30)
[2020-09-21] MEDS ORDERED: Aspirin Chewable 81 MG TAB PO SCH (09:30)
[2020-09-21] MEDS: Metoprolol Tartrate 25 MG TAB PO SCH ×2 (09:40→21:46)
[2020-09-21] MEDS ORDERED: Iopamidol 370 76% 100 ML VIAL ONE (09:44)
[2020-09-21] MEDS: Clopidogrel Bisulfate 75 MG TAB PO SCH (09:48)
[2020-09-21] MEDS: Senokot 8.6 MG TAB PO SCH ×2 (09:49→21:46)
[2020-09-21] MEDS: Midodrine HCl 5 MG TAB PO SCH ×3 (09:49→21:48)
[2020-09-21] MEDS: Enoxaparin Sodium 40 MG/0.4 ML SYRINGE SC SCH (09:49)
[2020-09-21] MEDS: Saccharomyces boulardii 250 MG CAP PO SCH (09:49)
[2020-09-21] MEDS: Polyethylene Glycol 3350 17 GM Packet PO PRN (09:50)
[2020-09-21] MEDS: Tamsulosin HCl 0.4 MG CAP PO SCH (09:50)
[2020-09-21] MEDS: Pyridostigmine Bromide IR 60 MG TAB PO SCH ×3 (10:09→21:48)
[2020-09-21] MEDS: Aspirin 325 MG TAB PO SCH (10:09)
[2020-09-21 14:48] LABS: #Eosinphils 0.1 thou/uL (0.0-0.7); #Lymphocytes 1.6 thou/uL (1.20-3.40); #Monocytes 0.6 thou/uL (0.11-0.59); #Neutrophils 8.4 thou/uL (1.40-6.50); %Basophils 0.1 % (0.0-1.0); %Eosinophils 1.1 % (0.0-10.0); %Lymphocytes 14.8 % (21.0-51.0); %Monocytes 5.3 % (0.0-10.0); %Neutrophils 78.7 % (42.0-75.0); Hemoglobin 13.4 g/dL (14.0-18.0); Mean Corpuscular HGB CONC 31.7 g/dL (32.0-36.0); Mean Corpuscular Hemoglobin 29.1 pg (27.0-31.0); Mean Platelet Volume 8.9 fL (7.4-10.4); Platelet Count 175 thou/uL (130-400); RBC Distribution Width 13.1 % (11.5-14.5); Red Blood Cell (RBC) Count 4.58 mill/uL (4.70-6.10); White Blood Cell (WBC) Count 10.6 thou/uL (4.8-10.8)
[2020-09-21 15:06] LABS: Anion Gap 13 mmol/L (10-20); BUN (Urea Nitrogen) 18 mg/dL (8.4-25.7); Calc. Creatinine Clearance 79 mL/min (70-130); Calcium 9.2 mg/dL (7.8-10.44); Carbon Dioxide 27 mmol/L (23-31); Chloride 101 mmol/L (98-107); Glucose 102 mg/dL (83-110); Potassium 4.2 mmol/L (3.5-5.1); Sodium 137 mmol/L (136-145)
[2020-09-21] MEDS: Simvastatin 10 MG TAB PO SCH (21:46)
[2020-09-22 04:08] LABS: Hemoglobin 10.9 g/dL (14.0-18.0); Mean Corpuscular HGB CONC 31.4 g/dL (32.0-36.0); Mean Corpuscular Hemoglobin 28.7 pg (27.0-31.0); Mean Corpuscular Volume 91.4 fL (78.0-98.0); Mean Platelet Volume 7.9 fL (7.4-10.4); Platelet Count 223 thou/uL (130-400); RBC Distribution Width 12.9 % (11.5-14.5); White Blood Cell (WBC) Count 10.1 thou/uL (4.8-10.8)
[2020-09-22 04:22] LABS: Anion Gap 11 mmol/L (10-20); BUN (Urea Nitrogen) 19 mg/dL (8.4-25.7); Calc. Creatinine Clearance 95 mL/min (70-130); Carbon Dioxide 28 mmol/L (23-31); Chloride 102 mmol/L (98-107); Glucose 86 mg/dL (83-110); Potassium 3.9 mmol/L (3.5-5.1); Sodium 137 mmol/L (136-145)
[2020-09-22] MEDS ORDERED: Fludrocortisone Acetate 0.1 MG TAB PO SCH ×2 (09:00→17:00)
[2020-09-22 09:32] LABS: Troponin I 0.018 ng/mL (< 0.028)
[2020-09-22] MEDS: Saccharomyces boulardii 250 MG CAP PO SCH (10:07)
[2020-09-22] MEDS: Pyridostigmine Bromide IR 60 MG TAB PO SCH ×3 (10:07→22:30)
[2020-09-22] MEDS: Metoprolol Tartrate 25 MG TAB PO SCH (10:07)
[2020-09-22] MEDS: Clopidogrel Bisulfate 75 MG TAB PO SCH (10:07)
[2020-09-22] MEDS: Midodrine HCl 5 MG TAB PO SCH ×2 (10:07→15:05)
[2020-09-22] MEDS: Senokot 8.6 MG TAB PO SCH ×2 (10:07→22:30)
[2020-09-22] MEDS: Aspirin Chewable 81 MG TAB PO SCH (10:08)
[2020-09-22] MEDS: Enoxaparin Sodium 40 MG/0.4 ML SYRINGE SC SCH (10:08)
[2020-09-22] MEDS: Tamsulosin HCl 0.4 MG CAP PO SCH (10:08)
[2020-09-22] MEDS ORDERED: Iopamidol-370 76% 500 ML 1 ML ONE (15:02)
[2020-09-22] MEDS ORDERED: Midodrine HCl 5 MG TAB PO SCH (21:00)
[2020-09-22] MEDS: Simvastatin 10 MG TAB PO SCH (22:29)
[2020-09-23] MEDS: hydrALAZINE 20 MG/ML VIAL SLOW IVP PRN (00:38)
[2020-09-23] MEDS: Clopidogrel Bisulfate 75 MG TAB PO SCH (08:49)
[2020-09-23] MEDS: Saccharomyces boulardii 250 MG CAP PO SCH (08:50)
[2020-09-23] MEDS: Enoxaparin Sodium 40 MG/0.4 ML SYRINGE SC SCH (08:51)
[2020-09-23] MEDS: Pyridostigmine Bromide IR 60 MG TAB PO SCH ×3 (08:51→22:35)
[2020-09-23] MEDS: Aspirin Chewable 81 MG TAB PO SCH (08:51)
[2020-09-23] MEDS: Senokot 8.6 MG TAB PO SCH ×2 (08:51→22:36)
[2020-09-23] MEDS: Fludrocortisone Acetate 0.1 MG TAB PO SCH ×2 (08:52→15:26)
[2020-09-23] MEDS: Midodrine HCl 5 MG TAB PO SCH ×3 (09:24→22:35)
[2020-09-23] MEDS: Simvastatin 10 MG TAB PO SCH (22:36)
[2020-09-24] MEDS: Clopidogrel Bisulfate 75 MG TAB PO SCH (09:16)
[2020-09-24] MEDS: Senokot 8.6 MG TAB PO SCH ×2 (09:16→22:18)
[2020-09-24] MEDS: Midodrine HCl 5 MG TAB PO SCH ×3 (09:16→22:19)
[2020-09-24] MEDS: Aspirin Chewable 81 MG TAB PO SCH (09:16)
[2020-09-24] MEDS: Saccharomyces boulardii 250 MG CAP PO SCH (09:16)
[2020-09-24] MEDS: Pyridostigmine Bromide IR 60 MG TAB PO SCH ×3 (09:17→22:18)
[2020-09-24] MEDS: Fludrocortisone Acetate 0.1 MG TAB PO SCH (09:17)
[2020-09-24] MEDS: Enoxaparin Sodium 40 MG/0.4 ML SYRINGE SC SCH (09:17)
[2020-09-24] MEDS: Simvastatin 10 MG TAB PO SCH (22:18)
[2020-09-25] MEDS: Aspirin Chewable 81 MG TAB PO SCH (09:20)
[2020-09-25] MEDS: Enoxaparin Sodium 40 MG/0.4 ML SYRINGE SC SCH (09:21)
[2020-09-25] MEDS: Clopidogrel Bisulfate 75 MG TAB PO SCH (09:21)
[2020-09-25] MEDS: Midodrine HCl 5 MG TAB PO SCH ×3 (09:22→21:07)
[2020-09-25] MEDS: Pyridostigmine Bromide IR 60 MG TAB PO SCH ×3 (09:22→21:13)
[2020-09-25] MEDS: Senokot 8.6 MG TAB PO SCH ×2 (09:23→21:07)
[2020-09-25] MEDS: Saccharomyces boulardii 250 MG CAP PO SCH (09:23)
[2020-09-25] MEDS ORDERED: Iopamidol-370 76% 500 ML 1 ML ONE (12:46)
[2020-09-25] MEDS: hydrALAZINE 20 MG/ML VIAL SLOW IVP PRN ×2 (15:13→23:46)
[2020-09-25] MEDS: Simvastatin 10 MG TAB PO SCH (21:06)
[2020-09-26] MEDS: Enoxaparin Sodium 40 MG/0.4 ML SYRINGE SC SCH (09:16)
[2020-09-26] MEDS: Clopidogrel Bisulfate 75 MG TAB PO SCH (09:16)
[2020-09-26] MEDS: Aspirin Chewable 81 MG TAB PO SCH (09:16)
[2020-09-26] MEDS: Fludrocortisone Acetate 0.1 MG TAB PO SCH (09:17)
[2020-09-26] MEDS: Midodrine HCl 5 MG TAB PO SCH ×4 (09:17→20:49)
[2020-09-26] MEDS: Pyridostigmine Bromide IR 60 MG TAB PO SCH ×3 (09:17→20:48)
[2020-09-26] MEDS: Saccharomyces boulardii 250 MG CAP PO SCH (09:18)
[2020-09-26] MEDS: Senokot 8.6 MG TAB PO SCH ×2 (09:18→20:49)
[2020-09-26] MEDS: hydrALAZINE 20 MG/ML VIAL SLOW IVP PRN (20:47)
[2020-09-26] MEDS: Simvastatin 10 MG TAB PO SCH (20:48)
[2020-09-27] MEDS: Clopidogrel Bisulfate 75 MG TAB PO SCH (09:29)
[2020-09-27] MEDS: Aspirin Chewable 81 MG TAB PO SCH (09:29)
[2020-09-27] MEDS: Enoxaparin Sodium 40 MG/0.4 ML SYRINGE SC SCH (09:30)
[2020-09-27] MEDS: Fludrocortisone Acetate 0.1 MG TAB PO SCH (09:30)
[2020-09-27] MEDS: Midodrine HCl 5 MG TAB PO SCH ×3 (09:30→20:29)
[2020-09-27] MEDS: Pyridostigmine Bromide IR 60 MG TAB PO SCH ×3 (09:31→20:29)
[2020-09-27] MEDS: Senokot 8.6 MG TAB PO SCH ×2 (09:32→20:29)
[2020-09-27] MEDS: Saccharomyces boulardii 250 MG CAP PO SCH (09:32)
[2020-09-27] MEDS: hydrALAZINE 20 MG/ML VIAL SLOW IVP PRN (20:29)
[2020-09-27] MEDS: Simvastatin 10 MG TAB PO SCH (20:29)
[2020-09-28] MEDS: Aspirin Chewable 81 MG TAB PO SCH (09:27)
[2020-09-28] MEDS: Clopidogrel Bisulfate 75 MG TAB PO SCH (09:28)
[2020-09-28] MEDS: Enoxaparin Sodium 40 MG/0.4 ML SYRINGE SC SCH (09:28)
[2020-09-28] MEDS: Senokot 8.6 MG TAB PO SCH ×2 (09:28→20:28)
[2020-09-28] MEDS: Saccharomyces boulardii 250 MG CAP PO SCH (09:28)
[2020-09-28] MEDS: Pyridostigmine Bromide IR 60 MG TAB PO SCH ×3 (09:37→20:28)
[2020-09-28] MEDS: Fludrocortisone Acetate 0.1 MG TAB PO SCH (09:38)
[2020-09-28] MEDS: Midodrine HCl 5 MG TAB PO SCH ×3 (11:56→20:28)
[2020-09-28] MEDS: Simvastatin 10 MG TAB PO SCH (20:27)
[2020-09-28] MEDS: hydrALAZINE 20 MG/ML VIAL SLOW IVP PRN (20:33)
[2020-09-29] MEDS: hydrALAZINE 20 MG/ML VIAL SLOW IVP PRN ×2 (00:57→20:26)
[2020-09-29 09:31] LABS: #Basophils 0.1 thou/uL (0.0-0.2); #Eosinphils 0.2 thou/uL (0.0-0.7); #Lymphocytes 1.3 thou/uL (1.20-3.40); #Monocytes 0.7 thou/uL (0.11-0.59); #Neutrophils 5.7 thou/uL (1.40-6.50); %Basophils 0.7 % (0.0-1.0); %Eosinophils 2.2 % (0.0-10.0); %Lymphocytes 16.4 % (21.0-51.0); %Monocytes 8.8 % (0.0-10.0); %Neutrophils 71.9 % (42.0-75.0); Hemoglobin 11.3 g/dL (14.0-18.0); Mean Corpuscular HGB CONC 30.9 g/dL (32.0-36.0); Mean Corpuscular Hemoglobin 28.2 pg (27.0-31.0); Mean Corpuscular Volume 91.2 fL (78.0-98.0); Mean Platelet Volume 8.6 fL (7.4-10.4); Platelet Count 217 thou/uL (130-400); RBC Distribution Width 13.1 % (11.5-14.5); Red Blood Cell (RBC) Count 4.02 mill/uL (4.70-6.10); White Blood Cell (WBC) Count 7.9 thou/uL (4.8-10.8)
[2020-09-29 09:41] LABS: Anion Gap 9 mmol/L (10-20); BUN (Urea Nitrogen) 11 mg/dL (8.4-25.7); Calc. Creatinine Clearance 85 mL/min (70-130); Calcium 8.7 mg/dL (7.8-10.44); Carbon Dioxide 30 mmol/L (23-31); Chloride 105 mmol/L (98-107); Glucose 95 mg/dL (83-110); Potassium 3.8 mmol/L (3.5-5.1); Sodium 140 mmol/L (136-145)
[2020-09-29] MEDS: Saccharomyces boulardii 250 MG CAP PO SCH (09:50)
[2020-09-29] MEDS: Senokot 8.6 MG TAB PO SCH ×2 (09:50→20:26)
[2020-09-29] MEDS: Aspirin Chewable 81 MG TAB PO SCH (09:51)
[2020-09-29] MEDS: Midodrine HCl 5 MG TAB PO SCH ×3 (09:51→20:26)
[2020-09-29] MEDS: Clopidogrel Bisulfate 75 MG TAB PO SCH (09:51)
[2020-09-29] MEDS: Enoxaparin Sodium 40 MG/0.4 ML SYRINGE SC SCH (09:51)
[2020-09-29] MEDS: Pyridostigmine Bromide IR 60 MG TAB PO SCH ×3 (09:52→20:25)
[2020-09-29] MEDS: Fludrocortisone Acetate 0.1 MG TAB PO SCH (09:52)
[2020-09-29] MEDS: Simvastatin 10 MG TAB PO SCH (20:25)
[2020-09-30] MEDS: Saccharomyces boulardii 250 MG CAP PO SCH (09:17)
[2020-09-30] MEDS: Enoxaparin Sodium 40 MG/0.4 ML SYRINGE SC SCH (09:17)
[2020-09-30] MEDS: Clopidogrel Bisulfate 75 MG TAB PO SCH (09:18)
[2020-09-30] MEDS: Senokot 8.6 MG TAB PO SCH ×2 (09:18→20:25)
[2020-09-30] MEDS: Midodrine HCl 5 MG TAB PO SCH ×3 (09:18→20:18)
[2020-09-30] MEDS: Fludrocortisone Acetate 0.1 MG TAB PO SCH (09:20)
[2020-09-30] MEDS: Pyridostigmine Bromide IR 60 MG TAB PO SCH ×3 (09:20→20:24)
[2020-09-30] MEDS: Aspirin Chewable 81 MG TAB PO SCH ×2 (10:58→16:51)
[2020-09-30 12:17] VITALS: BMI 25.4
[2020-09-30] MEDS: Polyethylene Glycol 3350 17 GM Packet PO PRN (15:43)
[2020-09-30] MEDS: Simvastatin 10 MG TAB PO SCH (20:25)
[2020-09-30] MEDS: hydrALAZINE 20 MG/ML VIAL SLOW IVP PRN (21:35)
[2020-10-01] MEDS: Enoxaparin Sodium 40 MG/0.4 ML SYRINGE SC SCH (08:15)
[2020-10-01] MEDS: Saccharomyces boulardii 250 MG CAP PO SCH (08:15)
[2020-10-01] MEDS: Clopidogrel Bisulfate 75 MG TAB PO SCH (08:16)
[2020-10-01] MEDS: Aspirin Chewable 81 MG TAB PO SCH (08:16)
[2020-10-01] MEDS: Senokot 8.6 MG TAB PO SCH (08:16)
[2020-10-01] MEDS: Midodrine HCl 5 MG TAB PO SCH ×2 (08:16→16:05)
[2020-10-01] MEDS: hydrALAZINE 20 MG/ML VIAL SLOW IVP PRN ×2 (08:21→15:55)
[2020-10-01] MEDS: Pyridostigmine Bromide IR 60 MG TAB PO SCH ×2 (08:22→15:52)
[2020-10-01] MEDS: Fludrocortisone Acetate 0.1 MG TAB PO SCH (08:22)
[2020-10-01 15:51] VITALS: TEMP 98
[2020-10-01 17:44] VITALS: BP 174/76
[2020-10-06 18:14] LABS: Metanephrine,Ur 247 ug/L (Undefined); Metanephrines Total-24H 72 ug/24 hr (58-276); Normetanephrine,Ur 672 ug/L (Undefined); Normetanephrines-24H U 195 ug/24 hr (156-729)
[2020-10-06 21:38] LABS: Metanephrine,Plasma <10.0 pg/mL (0.0-88.0)
== END 2020-10-01 18:20 | DRG 300 ==
LOC: ERS 22:02 → 2NO 09-17 00:23 → OBSVTOIN 09-19 19:29 → MERGE 09-19 19:29
PROVIDERS: ADMIT Student in an Organized Health Care Education/Training Program; ATTEND Internal Medicine
PROC: 4B02XSZ Measurement of Cardiac Pacemaker, External Approach (ICD-10-PCS; principal; 2020-09-19)
DX: I77.1 Stricture of artery (principal); T81.49XA Infection following a procedure, other surgical site, initial encounter; G93.49 Other encephalopathy; Z51.5 Encounter for palliative care; Z66 Do not resuscitate; Z20.822 Contact with and (suspected) exposure to COVID-19; G90.9 Disorder of the autonomic nervous system, unspecified; I12.9 Hypertensive chronic kidney disease with stage 1 through stage 4 chronic kidney disease, or unspecified chronic kidney disease; N40.0 Benign prostatic hyperplasia without lower urinary tract symptoms; N18.30 Chronic kidney disease, stage 3 unspecified; I44.1 Atrioventricular block, second degree; I25.118 Atherosclerotic heart disease of native coronary artery with other forms of angina pectoris; I45.10 Unspecified right bundle-branch block; Y84.8 Other medical procedures as the cause of abnormal reaction of the patient, or of later complication, without mention of misadventure at the time of the procedure; E78.5 Hyperlipidemia, unspecified; M19.90 Unspecified osteoarthritis, unspecified site; I95.1 Orthostatic hypotension; I65.21 Occlusion and stenosis of right carotid artery; D35.00 Benign neoplasm of unspecified adrenal gland; F03.90 Unspecified dementia, unspecified severity, without behavioral disturbance, psychotic disturbance, mood disturbance, and anxiety; Z96.653 Presence of artificial knee joint, bilateral; D63.1 Anemia in chronic kidney disease; Z95.5 Presence of coronary angioplasty implant and graft; Z95.0 Presence of cardiac pacemaker; Z79.01 Long term (current) use of anticoagulants; Z79.82 Long term (current) use of aspirin; Z79.899 Other long term (current) drug therapy; Z95.1 Presence of aortocoronary bypass graft
CPT/HCPCS: 36415; 36416; 70450; 70496; 70498; 71045; 71275; 74170; 80048; 80053; 80400; 82306; 82533; 82553; 82607; 82746; 83036; 83835; 83880; 84439; 84443; 84484; 85025; 85027; 93005; 93306; 93880; 95712; 95819; 95957; 96372; 96374; 96375; G0378; J0360; J0834; J1650; J2543; J3490; Q9967; U0002

== ENCOUNTER 2020-10-11 11:12 | Inpatient (IN) | payer MEDICARE, BC ==
[2020-10-11 13:49] LABS: #Basophils 0.1 thou/uL (0.0-0.2); #Eosinphils 0.1 thou/uL (0.0-0.7); #Lymphocytes 1.5 thou/uL (1.20-3.40); #Monocytes 0.7 thou/uL (0.11-0.59); #Neutrophils 6.3 thou/uL (1.40-6.50); %Basophils 1.4 % (0.0-1.0); %Eosinophils 0.9 % (0.0-10.0); %Lymphocytes 17.6 % (21.0-51.0); %Monocytes 7.8 % (0.0-10.0); %Neutrophils 72.3 % (42.0-75.0); Hemoglobin 11.4 g/dL (14.0-18.0); Mean Corpuscular HGB CONC 31.7 g/dL (32.0-36.0); Mean Corpuscular Hemoglobin 28.9 pg (27.0-31.0); Mean Corpuscular Volume 91.1 fL (78.0-98.0); Mean Platelet Volume 9.5 fL (7.4-10.4); Platelet Count 139 thou/uL (130-400); RBC Distribution Width 13.8 % (11.5-14.5); Red Blood Cell (RBC) Count 3.95 mill/uL (4.70-6.10); White Blood Cell (WBC) Count 8.7 thou/uL (4.8-10.8)
[2020-10-11 13:52] LABS: ALT (SGPT) 19 U/L (8-55); AST (SGOT) 34 U/L (5-34); Albumin 3.3 g/dL (3.4-4.8); Alkaline Phosphatase 87 U/L (40-110); Anion Gap 10 mmol/L (10-20); BUN (Urea Nitrogen) 11 mg/dL (8.4-25.7); Bilirubin, Total 0.7 mg/dL (0.2-1.2); Calc. Creatinine Clearance 0 mL/min (70-130); Calcium 8.7 mg/dL (7.8-10.44); Carbon Dioxide 28 mmol/L (23-31); Chloride 107 mmol/L (98-107); Globulin 3.5 g/dL (2.4-3.5); Glucose 79 mg/dL (83-110); Potassium 3.6 mmol/L (3.5-5.1); Protein, Total 6.8 g/dL (5.8-8.1); Sodium 141 mmol/L (136-145)
[2020-10-11 14:18] LABS: CKMB 2.3 ng/mL (0-6.6)
[2020-10-11] MEDS ORDERED: Ondansetron ODT 4 MG TAB PO PRN (16:47)
[2020-10-11] MEDS ORDERED: Acetaminophen 325 MG TAB PO PRN (16:47)
[2020-10-11 17:26] LABS: Critical Call Chem Troponin I RESULT DECREASING
[2020-10-11] MEDS ORDERED: Nitroglycerin 0.4 MG TAB (25 Tab Bottle) SL PRN (17:30)
[2020-10-11] MEDS: Simvastatin 5 MG TAB PO SCH (20:50)
[2020-10-11] MEDS: Midodrine HCl 5 MG TAB PO SCH (20:50)
[2020-10-11] MEDS: Senokot 8.6 MG TAB PO SCH (20:50)
[2020-10-11] MEDS: Pyridostigmine Bromide IR 60 MG TAB PO SCH (20:51)
[2020-10-11] MEDS ORDERED: Enoxaparin Sodium 40 MG/0.4 ML SYRINGE SC SCH (21:00)
[2020-10-11 21:24] VITALS: BMI 25.8
[2020-10-11 22:13] LABS: Troponin I 0.427 ng/mL (< 0.028)
[2020-10-11 23:11] LABS: SARS-CoV-2 NAA Rapid Test Not Detected (NotDetected)
[2020-10-11] MEDS: hydrALAZINE 20 MG/ML VIAL SLOW IVP PRN (23:39)
[2020-10-12 00:16] LABS: Troponin I 0.434 ng/mL (< 0.028)
[2020-10-12] MEDS ORDERED: Labetalol HCl 100 MG/20 ML VIAL SLOW IVP PRN (00:59)
[2020-10-12 02:01] LABS: Hemoglobin 10.5 g/dL (14.0-18.0); Mean Corpuscular HGB CONC 32.8 g/dL (32.0-36.0); Mean Corpuscular Hemoglobin 29.8 pg (27.0-31.0); Mean Corpuscular Volume 90.7 fL (78.0-98.0); Platelet Count 136 thou/uL (130-400); RBC Distribution Width 13.7 % (11.5-14.5); Red Blood Cell (RBC) Count 3.53 mill/uL (4.70-6.10); White Blood Cell (WBC) Count 9.8 thou/uL (4.8-10.8)
[2020-10-12 02:25] LABS: Critical Call Chem Troponin I RESULT DECREASING; Troponin I 0.361 ng/mL (< 0.028)
[2020-10-12 02:29] LABS: Lymphocytes 15 % (21-51); MDiff Complete? YES; Monocytes 6 % (0-10); Neutrophil 79 % (42-75)
[2020-10-12 02:39] LABS: Cardiac Risk 2.2 (Less than 4.5)
[2020-10-12] MEDS ORDERED: Enoxaparin Sodium 100 MG/ML SYRINGE SC SCH (03:30)
[2020-10-12] MEDS: Saccharomyces boulardii 250 MG CAP PO SCH (08:19)
[2020-10-12] MEDS: Clopidogrel Bisulfate 75 MG TAB PO SCH (08:19)
[2020-10-12] MEDS: Polyethylene Glycol 3350 17 GM Packet PO SCH (08:19)
[2020-10-12] MEDS: Senokot 8.6 MG TAB PO SCH ×2 (08:20→20:32)
[2020-10-12] MEDS: Pyridostigmine Bromide IR 60 MG TAB PO SCH ×3 (08:20→20:30)
[2020-10-12] MEDS: Midodrine HCl 5 MG TAB PO SCH ×3 (08:20→20:30)
[2020-10-12] MEDS: Aspirin 81 mg Enteric Coated Tablet PO SCH (08:20)
[2020-10-12] MEDS: Fludrocortisone Acetate 0.1 MG TAB PO SCH (08:21)
[2020-10-12] MEDS: hydrALAZINE 20 MG/ML VIAL SLOW IVP PRN (15:20)
[2020-10-12] MEDS: Simvastatin 5 MG TAB PO SCH (20:32)
[2020-10-13 04:55] LABS: #Eosinphils 0.1 thou/uL (0.0-0.7); #Lymphocytes 1.6 thou/uL (1.20-3.40); #Monocytes 0.8 thou/uL (0.11-0.59); #Neutrophils 4.5 thou/uL (1.40-6.50); %Basophils 0.6 % (0.0-1.0); %Eosinophils 1.7 % (0.0-10.0); %Lymphocytes 22.6 % (21.0-51.0); %Monocytes 11.7 % (0.0-10.0); %Neutrophils 63.5 % (42.0-75.0); Hemoglobin 9.9 g/dL (14.0-18.0); Mean Corpuscular HGB CONC 31.8 g/dL (32.0-36.0); Mean Corpuscular Hemoglobin 29.2 pg (27.0-31.0); Mean Corpuscular Volume 91.8 fL (78.0-98.0); Mean Platelet Volume 9.3 fL (7.4-10.4); Platelet Count 146 thou/uL (130-400); RBC Distribution Width 13.8 % (11.5-14.5)
[2020-10-13] MEDS: Clopidogrel Bisulfate 75 MG TAB PO SCH (05:09)
[2020-10-13] MEDS: Aspirin 81 mg Enteric Coated Tablet PO SCH (05:09)
[2020-10-13] MEDS: Fludrocortisone Acetate 0.1 MG TAB PO SCH (05:10)
[2020-10-13] MEDS: Midodrine HCl 5 MG TAB PO SCH ×3 (05:11→20:27)
[2020-10-13] MEDS: Polyethylene Glycol 3350 17 GM Packet PO SCH (05:11)
[2020-10-13] MEDS: Pyridostigmine Bromide IR 60 MG TAB PO SCH ×3 (05:12→20:25)
[2020-10-13] MEDS: Senokot 8.6 MG TAB PO SCH ×2 (05:13→20:27)
[2020-10-13] MEDS: Saccharomyces boulardii 250 MG CAP PO SCH (05:13)
[2020-10-13 05:19] LABS: ALT (SGPT) 19 U/L (8-55); AST (SGOT) 43 U/L (5-34); Albumin 2.8 g/dL (3.4-4.8); Alkaline Phosphatase 72 U/L (40-110); Anion Gap 10 mmol/L (10-20); BUN (Urea Nitrogen) 13 mg/dL (8.4-25.7); Bilirubin, Total 0.7 mg/dL (0.2-1.2); Calc. Creatinine Clearance 81 mL/min (70-130); Calcium 8.3 mg/dL (7.8-10.44); Carbon Dioxide 29 mmol/L (23-31); Chloride 106 mmol/L (98-107); Globulin 3.1 g/dL (2.4-3.5); Glucose 90 mg/dL (83-110); Magnesium 1.8 mg/dL (1.6-2.6); Phosphorus 3.4 mg/dL (2.3-4.7); Potassium 3.6 mmol/L (3.5-5.1); Protein, Total 5.9 g/dL (5.8-8.1); Sodium 141 mmol/L (136-145)
[2020-10-13] MEDS ORDERED: Heparin 0 ML ONE (05:56)
[2020-10-13] MEDS ORDERED: Heparin 10,000 UNITS/ 10 ML VIAL ONE ×3 (06:00→07:43)
[2020-10-13] MEDS ORDERED: Sodium Chloride 0.9% 1,000 ML IV SCH ×2 (06:00→09:00)
[2020-10-13] MEDS ORDERED: Lidocaine 1% (PF) 30 ML VIAL ONE (06:35)
[2020-10-13] MEDS ORDERED: Fentanyl 100 MCG/2 ML VIAL ONE (07:07)
[2020-10-13] MEDS ORDERED: Midazolam HCl 2 mg/2 ml Vial ONE (07:07)
[2020-10-13] MEDS ORDERED: Bivalirudin 250 MG VIAL ONE (08:15)
[2020-10-13] MEDS ORDERED: Iopamidol 370 76% 50 ML VIAL FS ONE (08:45)
[2020-10-13] MEDS ORDERED: Iopamidol 370 76% 100 ML VIAL ONE (08:45)
[2020-10-13] MEDS ORDERED: Enoxaparin Sodium 40 MG/0.4 ML SYRINGE SC SCH (09:00)
[2020-10-13] MEDS ORDERED: Multivit, Therapeutic 1 TAB PO SCH (09:00)
[2020-10-13] MEDS ORDERED: Folic Acid 1 MG TAB PO SCH (09:00)
[2020-10-13] MEDS ORDERED: Cyanocobalamin (Vitamin B-12) 1,000 MCG TAB PO SCH (09:00)
[2020-10-13] MEDS ORDERED: hydrALAZINE 20 MG/ML VIAL ONE (11:17)
[2020-10-13] MEDS: hydrALAZINE 20 MG/ML VIAL SLOW IVP PRN (11:18)
[2020-10-13 14:09] LABS: Bacteria/HPF None Seen HPF (None Seen); Bilirubin Negative (Negative); Blood, Urine Negative (Negative); Clarity Clear (Clear); Glucose, Urine (Dipstick) Normal (Negative); Ketone, Urine 20 mg/dL (Negative); Leukocyte Negative Leu/uL (Negative); Nitrite Negative (Negative); Protein, Urine (Dipstick) 50 mg/dL (Neg-Trace); RBC/HPF 0-3 HPF (0-3); Urobilinogen 3 mg/dL (Less than 2); WBC/HPF 0-3 HPF (0-3)
[2020-10-13 14:11] LABS: Specific Gravity, Urine Less than 1.000 (1.002-1.036)
[2020-10-13 14:12] LABS: Urine Culture Reflex No No
[2020-10-13 19:59] VITALS: BP 140/92; TEMP 97.8
[2020-10-13] MEDS: Simvastatin 5 MG TAB PO SCH (20:25)
== END 2020-10-13 21:45 | disposition short-term general hospital (02) | DRG 282 ==
LOC: ERS 11:12 → 2NO 16:05
PROVIDERS: ADMIT Family Medicine; ATTEND Internal Medicine
PROC: 4A023N7 Measurement of Cardiac Sampling and Pressure, Left Heart, Percutaneous Approach (ICD-10-PCS; principal; 2020-10-13)
PROC: B2111ZZ Fluoroscopy of Multiple Coronary Arteries using Low Osmolar Contrast (ICD-10-PCS; 2020-10-13)
PROC: B2151ZZ Fluoroscopy of Left Heart using Low Osmolar Contrast (ICD-10-PCS; 2020-10-13)
DX: I21.4 Non-ST elevation (NSTEMI) myocardial infarction (principal); Z20.822 Contact with and (suspected) exposure to COVID-19; Z66 Do not resuscitate; R00.1 Bradycardia, unspecified; I95.1 Orthostatic hypotension; I65.23 Occlusion and stenosis of bilateral carotid arteries; E78.5 Hyperlipidemia, unspecified; N40.0 Benign prostatic hyperplasia without lower urinary tract symptoms; I12.9 Hypertensive chronic kidney disease with stage 1 through stage 4 chronic kidney disease, or unspecified chronic kidney disease; I08.1 Rheumatic disorders of both mitral and tricuspid valves; I25.110 Atherosclerotic heart disease of native coronary artery with unstable angina pectoris; E78.00 Pure hypercholesterolemia, unspecified; I87.2 Venous insufficiency (chronic) (peripheral); I73.9 Peripheral vascular disease, unspecified; N18.30 Chronic kidney disease, stage 3 unspecified; Z95.0 Presence of cardiac pacemaker; Z95.5 Presence of coronary angioplasty implant and graft; Z79.899 Other long term (current) drug therapy; Z79.82 Long term (current) use of aspirin; Z79.02 Long term (current) use of antithrombotics/antiplatelets
CPT/HCPCS: 36415; 36416; 71045; 80053; 80061; 81001; 82553; 83735; 83880; 84100; 84484; 85007; 85025; 85027; 85347; 93005; 93010; 93458; 94760; 99152; 99153; J0360; J0583; J1644; J1650; J2001; J2250; J3010; Q9967; U0002; U0005

== ENCOUNTER 2021-10-07 21:02 | Inpatient (IN) | payer MEDICARE, BC ==
[2021-10-08 02:29] LABS: Troponin I 0.025 ng/mL (< 0.028)
[2021-10-08] MEDS: Midodrine HCl 5 MG TAB PO SCH ×4 (06:33→20:55)
[2021-10-08 07:06] LABS: #Eosinphils 0.2 thou/uL (0.0-0.7); #Lymphocytes 1.2 thou/uL (1.20-3.40); #Monocytes 0.7 thou/uL (0.11-0.59); #Neutrophils 4.9 thou/uL (1.40-6.50); %Basophils 0.6 % (0.0-1.0); %Eosinophils 3.1 % (0.0-10.0); %Lymphocytes 16.5 % (21.0-51.0); %Monocytes 9.6 % (0.0-10.0); %Neutrophils 70.1 % (42.0-75.0); Hemoglobin 8.7 g/dL (14.0-18.0); Mean Corpuscular HGB CONC 29.3 g/dL (32.0-36.0); Mean Corpuscular Hemoglobin 24.8 pg (27.0-31.0); Mean Corpuscular Volume 84.6 fL (78.0-98.0); Mean Platelet Volume 9.2 fL (7.4-10.4); Platelet Count 181 thou/uL (130-400); RBC Distribution Width 18.8 % (11.5-14.5); Red Blood Cell (RBC) Count 3.51 mill/uL (4.70-6.10); White Blood Cell (WBC) Count 6.9 thou/uL (4.8-10.8)
[2021-10-08 07:22] LABS: ALT (SGPT) 20 U/L (8-55); AST (SGOT) 20 U/L (5-34); Albumin 2.6 g/dL (3.4-4.8); Alkaline Phosphatase 78 U/L (40-110); Anion Gap 13 mmol/L (10-20); BUN (Urea Nitrogen) 27 mg/dL (8.4-25.7); Bilirubin, Total 0.6 mg/dL (0.2-1.2); Calc. Creatinine Clearance 46 mL/min (70-130); Calcium 7.9 mg/dL (7.8-10.44); Carbon Dioxide 28 mmol/L (23-31); Chloride 104 mmol/L (98-107); Globulin 3.6 g/dL (2.4-3.5); Glucose 82 mg/dL (83-110); Magnesium 1.9 mg/dL (1.6-2.6); Potassium 3.6 mmol/L (3.5-5.1); Protein, Total 6.2 g/dL (5.8-8.1); Sodium 141 mmol/L (136-145)
[2021-10-08 07:26] LABS: Troponin I 0.025 ng/mL (< 0.028)
[2021-10-08 07:31] LABS: Hypochromia SLIGHT = 6-15 cells (100X) (0-5/hpf); MDiff Complete? YES; Platelet Morphology Comment Appears Adequate; Polychromasia SLIGHT = 2-3 cells (100X) (0-2/hpf); Schistocytes SLIGHT = 2-5 cells (100X) (0-1/hpf); Target Cells MODERATE= 6-15 cells (100X) (0-1/hpf); Tear Drops SLIGHT = 2-5 cells (100X) (0-1/hpf)
[2021-10-08] MEDS: Empagliflozin 10 MG TAB PO SCH (09:05)
[2021-10-08] MEDS: Aspirin Chewable 81 MG TAB PO SCH (09:05)
[2021-10-08] MEDS: Multivit, Therapeutic 1 TAB PO SCH (09:05)
[2021-10-08] MEDS: Clopidogrel Bisulfate 75 MG TAB PO SCH (09:05)
[2021-10-08] MEDS: Fludrocortisone Acetate 0.1 MG TAB PO SCH (09:05)
[2021-10-08] MEDS: Folic Acid 1 MG TAB PO SCH (09:05)
[2021-10-08] MEDS: Isosorbide Dinitrate 20 MG TAB PO SCH ×3 (09:06→16:57)
[2021-10-08] MEDS: Enoxaparin Sodium 40 MG/0.4 ML SYRINGE SC SCH (09:11)
[2021-10-08] MEDS: Polyethylene Glycol 3350 17 GM Packet PO PRN (14:54)
[2021-10-08 16:48] LABS: SARS-CoV-2 PCR by NAA Not Detected (NotDetected)
[2021-10-08] MEDS: Atorvastatin Calcium 20 MG TAB PO SCH (20:51)
[2021-10-08] MEDS: Mirtazapine 15 MG Soltab PO SCH (20:51)
[2021-10-09] MEDS: Midodrine HCl 5 MG TAB PO SCH ×3 (05:27→21:06)
[2021-10-09] MEDS: Isosorbide Dinitrate 20 MG TAB PO SCH ×3 (07:48→16:18)
[2021-10-09] MEDS: Folic Acid 1 MG TAB PO SCH (07:48)
[2021-10-09] MEDS: Multivit, Therapeutic 1 TAB PO SCH (07:50)
[2021-10-09] MEDS: Clopidogrel Bisulfate 75 MG TAB PO SCH (07:50)
[2021-10-09] MEDS: Fludrocortisone Acetate 0.1 MG TAB PO SCH (07:50)
[2021-10-09] MEDS: Aspirin Chewable 81 MG TAB PO SCH (07:50)
[2021-10-09] MEDS: Empagliflozin 10 MG TAB PO SCH (07:50)
[2021-10-09] MEDS: Enoxaparin Sodium 40 MG/0.4 ML SYRINGE SC SCH (07:50)
[2021-10-09] MEDS ORDERED: hydrALAZINE 25 MG TAB PO SCH (10:30)
[2021-10-09] MEDS ORDERED: Carvedilol 3.125 MG TAB PO SCH (10:30)
[2021-10-09 10:54] LABS: #Basophils 0.1 thou/uL (0.0-0.2); #Eosinphils 0.2 thou/uL (0.0-0.7); #Lymphocytes 0.9 thou/uL (1.20-3.40); #Monocytes 0.7 thou/uL (0.11-0.59); #Neutrophils 4.7 thou/uL (1.40-6.50); %Basophils 0.9 % (0.0-1.0); %Eosinophils 3.5 % (0.0-10.0); %Lymphocytes 13.5 % (21.0-51.0); Hemoglobin 9.7 g/dL (14.0-18.0); Mean Corpuscular HGB CONC 29.9 g/dL (32.0-36.0); Mean Corpuscular Hemoglobin 25.5 pg (27.0-31.0); Mean Corpuscular Volume 85.2 fL (78.0-98.0); Platelet Count 178 thou/uL (130-400); RBC Distribution Width 18.9 % (11.5-14.5); Red Blood Cell (RBC) Count 3.79 mill/uL (4.70-6.10); White Blood Cell (WBC) Count 6.6 thou/uL (4.8-10.8)
[2021-10-09 11:11] LABS: Anion Gap 12 mmol/L (10-20); BUN (Urea Nitrogen) 24 mg/dL (8.4-25.7); Calc. Creatinine Clearance 49 mL/min (70-130); Carbon Dioxide 28 mmol/L (23-31); Chloride 106 mmol/L (98-107); Glucose 89 mg/dL (83-110); Potassium 3.9 mmol/L (3.5-5.1); Sodium 142 mmol/L (136-145)
[2021-10-09] MEDS: hydrALAZINE 25 MG TAB PO SCH ×2 (14:53→21:03)
[2021-10-09] MEDS: Carvedilol 3.125 MG TAB PO SCH (16:18)
[2021-10-09] MEDS: Atorvastatin Calcium 20 MG TAB PO SCH (21:03)
[2021-10-09] MEDS: Mirtazapine 15 MG Soltab PO SCH (21:03)
[2021-10-10] MEDS: Midodrine HCl 5 MG TAB PO SCH ×3 (04:59→22:40)
[2021-10-10 05:18] LABS: #Basophils 0.1 thou/uL (0.0-0.2); #Eosinphils 0.2 thou/uL (0.0-0.7); #Lymphocytes 1.1 thou/uL (1.20-3.40); #Monocytes 0.6 thou/uL (0.11-0.59); #Neutrophils 4.1 thou/uL (1.40-6.50); %Basophils 0.9 % (0.0-1.0); %Eosinophils 3.5 % (0.0-10.0); %Lymphocytes 18.2 % (21.0-51.0); %Monocytes 10.6 % (0.0-10.0); %Neutrophils 66.8 % (42.0-75.0); Hemoglobin 8.9 g/dL (14.0-18.0); Mean Corpuscular HGB CONC 29.4 g/dL (32.0-36.0); Mean Corpuscular Hemoglobin 24.8 pg (27.0-31.0); Mean Corpuscular Volume 84.3 fL (78.0-98.0); Mean Platelet Volume 9.4 fL (7.4-10.4); Platelet Count 183 thou/uL (130-400); RBC Distribution Width 19.1 % (11.5-14.5); Red Blood Cell (RBC) Count 3.59 mill/uL (4.70-6.10); White Blood Cell (WBC) Count 6.1 thou/uL (4.8-10.8)
[2021-10-10 05:32] LABS: Anion Gap 9 mmol/L (10-20); BUN (Urea Nitrogen) 21 mg/dL (8.4-25.7); Calc. Creatinine Clearance 55 mL/min (70-130); Calcium 7.7 mg/dL (7.8-10.44); Carbon Dioxide 30 mmol/L (23-31); Chloride 106 mmol/L (98-107); Glucose 83 mg/dL (83-110); Potassium 3.7 mmol/L (3.5-5.1); Sodium 141 mmol/L (136-145)
[2021-10-10] MEDS: Aspirin Chewable 81 MG TAB PO SCH (07:55)
[2021-10-10] MEDS: Folic Acid 1 MG TAB PO SCH (07:56)
[2021-10-10] MEDS: Isosorbide Dinitrate 20 MG TAB PO SCH ×3 (07:56→16:39)
[2021-10-10] MEDS: Enoxaparin Sodium 40 MG/0.4 ML SYRINGE SC SCH (07:56)
[2021-10-10] MEDS: Empagliflozin 10 MG TAB PO SCH (07:56)
[2021-10-10] MEDS: hydrALAZINE 25 MG TAB PO SCH ×3 (07:57→20:23)
[2021-10-10] MEDS: Multivit, Therapeutic 1 TAB PO SCH (07:57)
[2021-10-10] MEDS: Clopidogrel Bisulfate 75 MG TAB PO SCH (07:57)
[2021-10-10] MEDS: Fludrocortisone Acetate 0.1 MG TAB PO SCH (07:57)
[2021-10-10] MEDS: Carvedilol 3.125 MG TAB PO SCH ×2 (07:57→16:40)
[2021-10-10] MEDS: Atorvastatin Calcium 20 MG TAB PO SCH (20:22)
[2021-10-10] MEDS: Mirtazapine 15 MG Soltab PO SCH (20:23)
[2021-10-11] MEDS: Midodrine HCl 5 MG TAB PO SCH (05:28)
[2021-10-11] MEDS: Enoxaparin Sodium 40 MG/0.4 ML SYRINGE SC SCH (09:20)
[2021-10-11] MEDS: Aspirin Chewable 81 MG TAB PO SCH (09:21)
[2021-10-11] MEDS: Folic Acid 1 MG TAB PO SCH (09:21)
[2021-10-11] MEDS: Isosorbide Dinitrate 20 MG TAB PO SCH ×3 (09:21→16:20)
[2021-10-11] MEDS: Clopidogrel Bisulfate 75 MG TAB PO SCH (09:22)
[2021-10-11] MEDS: hydrALAZINE 25 MG TAB PO SCH ×3 (09:22→19:56)
[2021-10-11] MEDS: Empagliflozin 10 MG TAB PO SCH (09:22)
[2021-10-11] MEDS: Multivit, Therapeutic 1 TAB PO SCH (09:22)
[2021-10-11] MEDS: Fludrocortisone Acetate 0.1 MG TAB PO SCH (09:23)
[2021-10-11] MEDS: Carvedilol 3.125 MG TAB PO SCH ×2 (09:24→16:20)
[2021-10-11] MEDS: Polyethylene Glycol 3350 17 GM Packet PO PRN (09:27)
[2021-10-11] MEDS: Mirtazapine 15 MG Soltab PO SCH (19:56)
[2021-10-11] MEDS: Atorvastatin Calcium 20 MG TAB PO SCH (19:56)
[2021-10-12] MEDS: Carvedilol 3.125 MG TAB PO SCH ×2 (06:01→16:03)
[2021-10-12] MEDS: Clopidogrel Bisulfate 75 MG TAB PO SCH (08:28)
[2021-10-12] MEDS: Aspirin Chewable 81 MG TAB PO SCH (08:28)
[2021-10-12] MEDS: Folic Acid 1 MG TAB PO SCH (08:29)
[2021-10-12] MEDS: Isosorbide Dinitrate 20 MG TAB PO SCH ×3 (08:29→16:03)
[2021-10-12] MEDS: Multivit, Therapeutic 1 TAB PO SCH (08:29)
[2021-10-12] MEDS: Empagliflozin 10 MG TAB PO SCH (08:29)
[2021-10-12] MEDS: Fludrocortisone Acetate 0.1 MG TAB PO SCH (08:30)
[2021-10-12] MEDS: hydrALAZINE 25 MG TAB PO SCH ×3 (08:30→21:47)
[2021-10-12] MEDS ORDERED: CEFAZOLIN 1 GM VIAL ONE (13:01)
[2021-10-12] MEDS ORDERED: Gentamicin 80 MG/100 ML BAG ONE (13:01)
[2021-10-12] MEDS ORDERED: Lidocaine 1% (PF) 30 ML VIAL ONE (13:01)
[2021-10-12] MEDS ORDERED: fentaNYL Citrate/PF 100 MCG/2 ML SYRINGE ONE (14:15)
[2021-10-12] MEDS ORDERED: Famotidine/PF 20 mg/2ml Vial ONE (14:15)
[2021-10-12] MEDS ORDERED: PROPOFOL 0 ML ONE (14:15)
[2021-10-12] MEDS: Polyethylene Glycol 3350 17 GM Packet PO PRN (21:47)
[2021-10-12] MEDS: Atorvastatin Calcium 20 MG TAB PO SCH (21:47)
[2021-10-12] MEDS: Mirtazapine 15 MG Soltab PO SCH (21:47)
[2021-10-13] MEDS: hydrALAZINE 25 MG TAB PO SCH ×3 (09:28→20:46)
[2021-10-13] MEDS: Carvedilol 3.125 MG TAB PO SCH ×2 (09:29→15:53)
[2021-10-13] MEDS: Isosorbide Dinitrate 20 MG TAB PO SCH ×3 (09:29→15:53)
[2021-10-13] MEDS: Aspirin Chewable 81 MG TAB PO SCH (09:30)
[2021-10-13] MEDS: Clopidogrel Bisulfate 75 MG TAB PO SCH (09:30)
[2021-10-13] MEDS: Fludrocortisone Acetate 0.1 MG TAB PO SCH (09:31)
[2021-10-13] MEDS: Empagliflozin 10 MG TAB PO SCH (09:31)
[2021-10-13] MEDS: Multivit, Therapeutic 1 TAB PO SCH (09:31)
[2021-10-13] MEDS: Folic Acid 1 MG TAB PO SCH (09:31)
[2021-10-13 11:32] VITALS: BMI 23.8
[2021-10-13] MEDS: Polyethylene Glycol 3350 17 GM Packet PO PRN (11:34)
[2021-10-13] MEDS: Atorvastatin Calcium 20 MG TAB PO SCH (20:46)
[2021-10-13] MEDS: Mirtazapine 15 MG Soltab PO SCH (20:47)
[2021-10-14] MEDS: Carvedilol 3.125 MG TAB PO SCH ×2 (06:30→16:11)
[2021-10-14] MEDS ORDERED: Gentamicin 80 MG/100 ML BAG ONE (06:51)
[2021-10-14] MEDS ORDERED: CEFAZOLIN 1 GM VIAL ONE (06:51)
[2021-10-14] MEDS ORDERED: ceFAZolin 2 GM/Dextrose 50 ML IVPB ONE (06:51)
[2021-10-14] MEDS: Isosorbide Dinitrate 20 MG TAB PO SCH ×3 (08:00→16:11)
[2021-10-14] MEDS ORDERED: Lidocaine 1% (PF) 30 ML VIAL ONE ×2 (08:30→11:52)
[2021-10-14] MEDS ORDERED: Propofol 1,000 MG/100 ML VIAL IV ONE (08:34)
[2021-10-14] MEDS ORDERED: PROPOFOL 200 MG/20 ML VIAL ONE (08:39)
[2021-10-14] MEDS ORDERED: Lidocaine 1% PF 5 ML VIAL ONE (08:39)
[2021-10-14] MEDS ORDERED: Labetalol HCl 100 MG/20 ML VIAL ONE (08:39)
[2021-10-14] MEDS ORDERED: Ketorolac Tromethamine 30 MG/ML VIAL ONE (08:39)
[2021-10-14] MEDS: hydrALAZINE 25 MG TAB PO SCH ×3 (09:00→21:11)
[2021-10-14] MEDS ORDERED: Propofol 500 MG/50 ML VIAL ONE ×2 (10:25→11:21)
[2021-10-14] MEDS ORDERED: Fentanyl 100 MCG/2 ML VIAL ONE (11:47)
[2021-10-14] MEDS: Fludrocortisone Acetate 0.1 MG TAB PO SCH (13:54)
[2021-10-14] MEDS: Multivit, Therapeutic 1 TAB PO SCH (13:54)
[2021-10-14] MEDS: Folic Acid 1 MG TAB PO SCH (13:55)
[2021-10-14] MEDS: Empagliflozin 10 MG TAB PO SCH (14:14)
[2021-10-14] MEDS: Clopidogrel Bisulfate 75 MG TAB PO SCH (14:14)
[2021-10-14] MEDS: Aspirin Chewable 81 MG TAB PO SCH (14:14)
[2021-10-14] MEDS ORDERED: HYDROcodone/Acetaminophen 5/325 mg Tablet PO PRN ×2 (14:35)
[2021-10-14] MEDS ORDERED: Iopamidol 370 76% 50 ML VIAL FS ONE (15:56)
[2021-10-14] MEDS: CEFAZOLIN 2 GM in Sodium Chloride 0.9% 100 ML IVPB SCH ×2 (16:10→22:38)
[2021-10-14] MEDS: Cephalexin 250 MG CAP PO SCH ×2 (16:11→21:11)
[2021-10-14] MEDS: Atorvastatin Calcium 20 MG TAB PO SCH (21:11)
[2021-10-14] MEDS: Mirtazapine 15 MG Soltab PO SCH (21:12)
[2021-10-14 21:46] LABS: SARS-CoV-2 PCR by NAA Not Detected (NotDetected)
[2021-10-15] MEDS ORDERED: hydrALAZINE 20 MG/ML VIAL SLOW IVP PRN (03:37)
[2021-10-15 08:03] LABS: Anion Gap 12 mmol/L (10-20); BUN (Urea Nitrogen) 19 mg/dL (8.4-25.7); Calc. Creatinine Clearance 58 mL/min (70-130); Calcium 8.2 mg/dL (7.8-10.44); Carbon Dioxide 25 mmol/L (23-31); Chloride 107 mmol/L (98-107); Glucose 83 mg/dL (83-110); Potassium 3.8 mmol/L (3.5-5.1); Sodium 140 mmol/L (136-145)
[2021-10-15 08:05] LABS: #Eosinphils 0.3 thou/uL (0.0-0.7); #Lymphocytes 0.7 thou/uL (1.20-3.40); #Monocytes 0.9 thou/uL (0.11-0.59); #Neutrophils 5.1 thou/uL (1.40-6.50); %Basophils 0.1 % (0.0-1.0); %Eosinophils 4.2 % (0.0-10.0); %Lymphocytes 9.8 % (21.0-51.0); %Monocytes 13.1 % (0.0-10.0); %Neutrophils 72.8 % (42.0-75.0); Hemoglobin 9.9 g/dL (14.0-18.0); Mean Corpuscular HGB CONC 30.3 g/dL (32.0-36.0); Mean Corpuscular Hemoglobin 25.3 pg (27.0-31.0); Mean Corpuscular Volume 83.4 fL (78.0-98.0); Mean Platelet Volume 9.7 fL (7.4-10.4); Platelet Count 197 thou/uL (130-400); RBC Distribution Width 19.6 % (11.5-14.5); Red Blood Cell (RBC) Count 3.91 mill/uL (4.70-6.10); White Blood Cell (WBC) Count 7.1 thou/uL (4.8-10.8)
[2021-10-15] MEDS: Carvedilol 3.125 MG TAB PO SCH ×2 (09:10→17:08)
[2021-10-15] MEDS: Isosorbide Dinitrate 20 MG TAB PO SCH ×3 (09:10→17:08)
[2021-10-15] MEDS: Aspirin Chewable 81 MG TAB PO SCH (09:10)
[2021-10-15] MEDS: Cephalexin 250 MG CAP PO SCH ×3 (09:10→22:27)
[2021-10-15] MEDS: Fludrocortisone Acetate 0.1 MG TAB PO SCH (09:11)
[2021-10-15] MEDS: Multivit, Therapeutic 1 TAB PO SCH (09:11)
[2021-10-15] MEDS: hydrALAZINE 25 MG TAB PO SCH ×3 (09:11→22:27)
[2021-10-15] MEDS: Clopidogrel Bisulfate 75 MG TAB PO SCH (09:11)
[2021-10-15] MEDS: Folic Acid 1 MG TAB PO SCH (09:11)
[2021-10-15] MEDS: Empagliflozin 10 MG TAB PO SCH (09:11)
[2021-10-15] MEDS ORDERED: Midodrine HCl 5 MG TAB PO SCH (14:00)
[2021-10-15] MEDS: Midodrine HCl 5 MG TAB PO SCH (22:27)
[2021-10-15] MEDS: Mirtazapine 15 MG Soltab PO SCH (22:27)
[2021-10-15] MEDS: Atorvastatin Calcium 20 MG TAB PO SCH (22:27)
[2021-10-16] MEDS: Cephalexin 250 MG CAP PO SCH ×2 (10:22→15:27)
[2021-10-16] MEDS: Midodrine HCl 5 MG TAB PO SCH ×2 (10:23→15:26)
[2021-10-16] MEDS: Fludrocortisone Acetate 0.1 MG TAB PO SCH (10:23)
[2021-10-16] MEDS: Clopidogrel Bisulfate 75 MG TAB PO SCH (10:23)
[2021-10-16] MEDS: Aspirin Chewable 81 MG TAB PO SCH (10:23)
[2021-10-16] MEDS: Empagliflozin 10 MG TAB PO SCH (10:23)
[2021-10-16] MEDS: Folic Acid 1 MG TAB PO SCH (10:24)
[2021-10-16] MEDS: Multivit, Therapeutic 1 TAB PO SCH (10:24)
[2021-10-16] MEDS: Carvedilol 3.125 MG TAB PO SCH (11:06)
[2021-10-16] MEDS: Isosorbide Dinitrate 20 MG TAB PO SCH ×2 (11:06→15:26)
[2021-10-16] MEDS: hydrALAZINE 25 MG TAB PO SCH ×2 (11:06→15:27)
[2021-10-16 11:18] VITALS: BP 160/73; TEMP 97.6
== END 2021-10-16 15:50 | disposition home health service (06) | DRG 227 ==
LOC: INTOOBSV 22:16 → 2SW 22:16 → PREOBSVTOIN 22:16 → OBSVTOIN 10-10 12:48 → 2SW 10-12 09:37
PROVIDERS: ADMIT Internal Medicine; ATTEND Internal Medicine
PROC: 0JH608Z Insertion of Defibrillator Generator into Chest Subcutaneous Tissue and Fascia, Open Approach (ICD-10-PCS; principal; 2021-10-12)
PROC: 02HK0KZ Insertion of Defibrillator Lead into Right Ventricle, Open Approach (ICD-10-PCS; 2021-10-12)
PROC: 02HL0KZ Insertion of Defibrillator Lead into Left Ventricle, Open Approach (ICD-10-PCS; 2021-10-12)
PROC: 02H60KZ Insertion of Defibrillator Lead into Right Atrium, Open Approach (ICD-10-PCS; 2021-10-12)
DX: I95.1 Orthostatic hypotension (principal); I50.22 Chronic systolic (congestive) heart failure; I25.810 Atherosclerosis of coronary artery bypass graft(s) without angina pectoris; I13.0 Hypertensive heart and chronic kidney disease with heart failure and stage 1 through stage 4 chronic kidney disease, or unspecified chronic kidney disease; I42.8 Other cardiomyopathies; Z20.822 Contact with and (suspected) exposure to COVID-19; E78.5 Hyperlipidemia, unspecified; M19.90 Unspecified osteoarthritis, unspecified site; R29.6 Repeated falls; E78.00 Pure hypercholesterolemia, unspecified; I73.9 Peripheral vascular disease, unspecified; I25.5 Ischemic cardiomyopathy; I44.1 Atrioventricular block, second degree; G70.00 Myasthenia gravis without (acute) exacerbation; N40.0 Benign prostatic hyperplasia without lower urinary tract symptoms; N18.30 Chronic kidney disease, stage 3 unspecified; D63.1 Anemia in chronic kidney disease; Z95.0 Presence of cardiac pacemaker; Z79.82 Long term (current) use of aspirin; Z79.899 Other long term (current) drug therapy; Z95.5 Presence of coronary angioplasty implant and graft
CPT/HCPCS: 33208; 33225; 36415; 71045; 80048; 80053; 83735; 84484; 85025; 93306; 94760; 94799; 96372; C1763; C1769; C1777; C1882; C1898; C1900; G0378; J0360; J0690; J1580; J1650; J1885; J2001; J2704; J3010; J3490; Q9967; S0028; U0003; U0005

== ENCOUNTER 2021-11-24 19:17 | Inpatient (IN) | payer MEDICARE, BC ==
[2021-11-24 23:52] VITALS: BMI 22.4
[2021-11-25] MEDS ORDERED: Calcium Carbonate 500 MG ChewTAB PO PRN (04:44)
[2021-11-25] MEDS ORDERED: Ondansetron ODT 4 MG TAB PO PRN (04:44)
[2021-11-25] MEDS ORDERED: Acetaminophen 650 MG Suppository PR PRN (04:44)
[2021-11-25] MEDS ORDERED: Ondansetron PF 4 MG/2 ML Vial IVP PRN (04:44)
[2021-11-25] MEDS ORDERED: Acetaminophen 325 MG TAB PO PRN (04:44)
[2021-11-25 05:47] LABS: #Eosinphils 0.1 thou/uL (0.0-0.7); #Lymphocytes 1.5 thou/uL (1.20-3.40); #Neutrophils 5.7 thou/uL (1.40-6.50); %Basophils 0.5 % (0.0-1.0); %Eosinophils 1.4 % (0.0-10.0); %Lymphocytes 18.3 % (21.0-51.0); %Monocytes 11.8 % (0.0-10.0); Hemoglobin 10.8 g/dL (14.0-18.0); Mean Corpuscular HGB CONC 29.7 g/dL (32.0-36.0); Mean Corpuscular Hemoglobin 25.3 pg (27.0-31.0); Mean Corpuscular Volume 85.2 fL (78.0-98.0); Mean Platelet Volume 10.4 fL (7.4-10.4); Platelet Count 170 thou/uL (130-400); RBC Distribution Width 19.7 % (11.5-14.5); Red Blood Cell (RBC) Count 4.27 mill/uL (4.70-6.10); White Blood Cell (WBC) Count 8.4 thou/uL (4.8-10.8)
[2021-11-25 06:21] LABS: ALT (SGPT) 14 U/L (8-55); AST (SGOT) 24 U/L (5-34); Albumin 3.1 g/dL (3.4-4.8); Alkaline Phosphatase 89 U/L (40-110); Anion Gap 13 mmol/L (10-20); BUN (Urea Nitrogen) 24 mg/dL (8.4-25.7); Bilirubin, Total 0.5 mg/dL (0.2-1.2); Calc. Creatinine Clearance 51 mL/min (70-130); Carbon Dioxide 25 mmol/L (23-31); Chloride 105 mmol/L (98-107); Estimated GFR 54; Globulin 4.6 g/dL (2.4-3.5); Glucose 92 mg/dL (83-110); Magnesium 2.1 mg/dL (1.6-2.6); Potassium 4.2 mmol/L (3.5-5.1); Protein, Total 7.7 g/dL (5.8-8.1); Sodium 139 mmol/L (136-145)
[2021-11-25] MEDS: Furosemide 40 MG/4 ML VIAL SLOW IVP SCH ×2 (06:32→15:04)
[2021-11-25] MEDS ORDERED: Non-Formulary Item 1 EACH (Midodrine [Midodrine] 10 MG Tab) PO PRN (15:37)
[2021-11-25] MEDS ORDERED: Midodrine HCl 5 MG TAB PO PRN (16:09)
[2021-11-25] MEDS ORDERED: Fludrocortisone Acetate 0.1 MG TAB PO SCH (16:15)
[2021-11-25] MEDS: Carvedilol 6.25 MG TAB PO SCH (17:30)
[2021-11-25] MEDS: Atorvastatin Calcium 20 MG TAB PO SCH (20:19)
[2021-11-26] MEDS: Cholecalciferol 1,000 UNITS (25 MCG) TAB PO SCH (08:20)
[2021-11-26] MEDS: Aspirin 81 mg Enteric Coated Tablet PO SCH (08:20)
[2021-11-26] MEDS: Fludrocortisone Acetate 0.1 MG TAB PO SCH (08:20)
[2021-11-26] MEDS: Clopidogrel Bisulfate 75 MG TAB PO SCH (08:21)
[2021-11-26] MEDS: Multivit, Therapeutic 1 TAB PO SCH (08:21)
[2021-11-26] MEDS: Empagliflozin 10 MG TAB PO SCH (08:21)
[2021-11-26] MEDS: Carvedilol 6.25 MG TAB PO SCH ×2 (08:21→17:56)
[2021-11-26] MEDS ORDERED: Bumetanide 1 MG TAB PO SCH ×2 (09:00→16:15)
[2021-11-26 14:47] LABS: Bacteria/HPF None Seen HPF (None Seen); Bilirubin Negative (Negative); Blood, Urine 3+ (Negative); Clarity Clear (Clear); Glucose, Urine (Dipstick) >=1000 mg/dL (Negative); Ketone, Urine Negative (Negative); Leukocyte Negative Leu/uL (Negative); Nitrite Negative (Negative); Protein, Urine (Dipstick) 10 mg/dL (Neg-Trace); Specific Gravity, Urine 1.008 (1.002-1.036); Squamous Epithelial None Seen HPF (0-3); Urobilinogen Normal mg/dL (Less than 2); WBC/HPF 0-3 HPF (0-3)
[2021-11-26 14:49] LABS: Urine Culture Reflex No No
[2021-11-26] MEDS: Atorvastatin Calcium 20 MG TAB PO SCH (21:57)
[2021-11-27] MEDS: Carvedilol 6.25 MG TAB PO SCH (08:45)
[2021-11-27] MEDS: Fludrocortisone Acetate 0.1 MG TAB PO SCH (08:45)
[2021-11-27] MEDS: Multivit, Therapeutic 1 TAB PO SCH (08:46)
[2021-11-27] MEDS: Cholecalciferol 1,000 UNITS (25 MCG) TAB PO SCH (08:46)
[2021-11-27] MEDS: Aspirin 81 mg Enteric Coated Tablet PO SCH (08:46)
[2021-11-27] MEDS: Clopidogrel Bisulfate 75 MG TAB PO SCH (08:46)
[2021-11-27] MEDS: Empagliflozin 10 MG TAB PO SCH (08:46)
[2021-11-27] MEDS ORDERED: Bumetanide 1 MG TAB PO SCH (09:00)
[2021-11-27] MEDS: Carvedilol 3.125 MG TAB PO SCH (17:28)
[2021-11-27] MEDS: Atorvastatin Calcium 20 MG TAB PO SCH (21:17)
[2021-11-28 04:56] LABS: #Eosinphils 0.2 thou/uL (0.0-0.7); #Lymphocytes 1.7 thou/uL (1.20-3.40); #Monocytes 0.9 thou/uL (0.11-0.59); #Neutrophils 5.6 thou/uL (1.40-6.50); %Basophils 0.2 % (0.0-1.0); %Eosinophils 2.3 % (0.0-10.0); %Lymphocytes 20.4 % (21.0-51.0); %Monocytes 10.3 % (0.0-10.0); %Neutrophils 66.8 % (42.0-75.0); Hemoglobin 10.8 g/dL (14.0-18.0); Hemoglobin A1c 5.5 % (4.0-6.0); Mean Corpuscular HGB CONC 29.7 g/dL (32.0-36.0); Mean Corpuscular Hemoglobin 25.4 pg (27.0-31.0); Mean Corpuscular Volume 85.5 fL (78.0-98.0); Mean Platelet Volume 10.9 fL (7.4-10.4); Platelet Count 157 thou/uL (130-400); RBC Distribution Width 19.4 % (11.5-14.5); Red Blood Cell (RBC) Count 4.25 mill/uL (4.70-6.10); White Blood Cell (WBC) Count 8.4 thou/uL (4.8-10.8)
[2021-11-28 05:12] LABS: Anion Gap 14 mmol/L (10-20); BUN (Urea Nitrogen) 27 mg/dL (8.4-25.7); Calc. Creatinine Clearance 60 mL/min (70-130); Calcium 8.7 mg/dL (7.8-10.44); Carbon Dioxide 28 mmol/L (23-31); Chloride 103 mmol/L (98-107); Estimated GFR 66; Glucose 77 mg/dL (83-110); Potassium 3.9 mmol/L (3.5-5.1); Sodium 141 mmol/L (136-145)
[2021-11-28] MEDS: Multivit, Therapeutic 1 TAB PO SCH (08:55)
[2021-11-28] MEDS: Clopidogrel Bisulfate 75 MG TAB PO SCH (08:55)
[2021-11-28] MEDS: Cholecalciferol 1,000 UNITS (25 MCG) TAB PO SCH (08:55)
[2021-11-28] MEDS: Aspirin 81 mg Enteric Coated Tablet PO SCH (08:56)
[2021-11-28] MEDS: Carvedilol 3.125 MG TAB PO SCH ×2 (08:56→18:13)
[2021-11-28] MEDS: Fludrocortisone Acetate 0.1 MG TAB PO SCH (08:56)
[2021-11-28] MEDS: Empagliflozin 10 MG TAB PO SCH (08:57)
[2021-11-28] MEDS ORDERED: Bumetanide 1 MG TAB PO SCH (09:00)
[2021-11-28] MEDS: Polyethylene Glycol 3350 17 GM Packet PO SCH (09:01)
[2021-11-28] MEDS: Atorvastatin Calcium 20 MG TAB PO SCH (21:27)
[2021-11-28] MEDS: Midodrine HCl 5 MG TAB PO SCH (21:27)
[2021-11-29] MEDS: Cholecalciferol 1,000 UNITS (25 MCG) TAB PO SCH (09:03)
[2021-11-29] MEDS: Empagliflozin 10 MG TAB PO SCH (09:03)
[2021-11-29] MEDS: Carvedilol 3.125 MG TAB PO SCH ×2 (09:03→18:55)
[2021-11-29] MEDS: Clopidogrel Bisulfate 75 MG TAB PO SCH (09:03)
[2021-11-29] MEDS: Fludrocortisone Acetate 0.1 MG TAB PO SCH (09:03)
[2021-11-29] MEDS: Aspirin 81 mg Enteric Coated Tablet PO SCH (09:03)
[2021-11-29] MEDS: Polyethylene Glycol 3350 17 GM Packet PO SCH (09:04)
[2021-11-29] MEDS: Multivit, Therapeutic 1 TAB PO SCH (09:04)
[2021-11-29] MEDS: Midodrine HCl 5 MG TAB PO SCH ×3 (09:04→20:29)
[2021-11-29 19:29] VITALS: BP 150/65; TEMP 97.4
[2021-11-29] MEDS: Atorvastatin Calcium 20 MG TAB PO SCH (20:29)
== END 2021-11-29 21:46 | DRG 312 ==
LOC: 2SW 19:17 → OBSVTOIN 11-25 16:15
PROVIDERS: ADMIT Hospitalist; ATTEND Hospitalist
DX: I95.1 Orthostatic hypotension (principal); Z20.822 Contact with and (suspected) exposure to COVID-19; I50.23 Acute on chronic systolic (congestive) heart failure; N17.9 Acute kidney failure, unspecified; I50.22 Chronic systolic (congestive) heart failure; I45.2 Bifascicular block; I13.0 Hypertensive heart and chronic kidney disease with heart failure and stage 1 through stage 4 chronic kidney disease, or unspecified chronic kidney disease; N40.0 Benign prostatic hyperplasia without lower urinary tract symptoms; I25.10 Atherosclerotic heart disease of native coronary artery without angina pectoris; Z96.653 Presence of artificial knee joint, bilateral; I87.2 Venous insufficiency (chronic) (peripheral); I73.9 Peripheral vascular disease, unspecified; I77.1 Stricture of artery; E78.00 Pure hypercholesterolemia, unspecified; N18.30 Chronic kidney disease, stage 3 unspecified; I35.1 Nonrheumatic aortic (valve) insufficiency; R81 Glycosuria; R31.29 Other microscopic hematuria; Z79.899 Other long term (current) drug therapy; Z79.82 Long term (current) use of aspirin; Z79.02 Long term (current) use of antithrombotics/antiplatelets; Z95.810 Presence of automatic (implantable) cardiac defibrillator; Z95.5 Presence of coronary angioplasty implant and graft; Z95.1 Presence of aortocoronary bypass graft; Z87.891 Personal history of nicotine dependence; Z87.440 Personal history of urinary (tract) infections
CPT/HCPCS: 36415; 71045; 80048; 80053; 81001; 83036; 83735; 84443; 85025; 96374; G0378; J1940